=== PATIENT | female | born 1930 | race Caucasian/White ===

== ENCOUNTER 2016-02-09 12:56 | Inpatient (IN) | payer MEDICARE ==
[~2016-02-09] VITALS: Ht 167.6 cm; Wt 83.4 kg
[~2016-02-09 12:56] MED LIST: HYDR25TA4 PO; LOV40 SQ; TIOT18CA IH; tpn
[2016-02-09 13:06] VITALS: BP 144/101; PULSE 90; O2SAT 95
[2016-02-09 13:31] LABS: BASOPHILS % (AUTO) 0.4 % (0-3); EOSINOPHILS % (AUTO) 1.3 % (0-5); Mean Corpuscular Hemoglobin 25.1 pg (27.0-35.0); Mean Corpuscular Volume 81.2 fL (81-100); NEUTROPHILS % (AUTO) 79.7 % (40-74); Platelet Count 227 bil/L (150-400)
--- NOTE | 2016-02-09 13:36 | ED.REPORT ---
HPI-General Illness Date of Service Feb 09, 2016 ED Provider: Kaveh Kelley MD Patient is an 86 year old female who presents to the ED from [place] via EMS complaining of confusion (per caregiver). Associated symptoms include cough. Upon arrival she was unable to name the time of day or president. She denies ear ache, nasal congestion, sore throat, vomiting, or any other symptoms. Nursing Notes Stated Complaint: CONFUSION Chief Complaint: General Complaint Nursing Notes Reviewed: Yes Allergies: Coded Allergies: No Known Allergies (Verified , 09/01/15) Scheduled ([tpn]) DAILY Enoxaparin-Expunged Drug, Do Not Renew! (Lovenox-Expunged Drug, Do Not Renew!) 40 Mg/0.4 Ml Disp.syrin 40 MG SQ DAILY Hydrochlorothiazide-Expunged, Do Not Renew! (Hydrochlorothiazide-Expunged, Do Not Renew!) 25 Mg Tablet 25 MG PO DAILY Tiotropium Br-Expunged Drug, Do Not Renew! (Spiriva-Expunged Drug, Do Not Renew! ) 18 Mcg/Puff Pack 1 PUFF IH DAILY General Time Seen by MD: 13:35 Chief Complaint Other (Change in mental status ) Hx Obtained From: Patient Arrived By: Ambulance Sudden in Onset?: Yes Past Medical History Past Medical History 1. Significant for bowel obstruction, hospitalized here from March 28 to April 16. On March 30 she went to the operating room and had a laparotomy and an intraabdominal abscess that was drained. She also had a small bowel resection for some bowel. 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 2. Peripheral vascular disease. 3. History of intraabdominal abscesses after abdominal aortic aneurysm repair. 4. COPD. 5. Possible DVT, on Coumadin. 6. Hypertension. Reports: Diabetes mellitus Past Surgical History Status post fem/fem bypass in 1989. Abdominal aortic aneurysm repair. Intraabdominal abscess drainage in the past as well as in March. Status post appendectomy. Status post right BKA. Family History noncontributory Smoking History Former Smoker Social History Alcohol Use: Denies alcohol use Drug Use: Denies drug use Other Social History: Local resident Ambulatory Status Independent Review of Systems Full Review of Systems Ears / Nose / Throat: Denies: Earache bilateral, Nasal congestion, Sore throat Respiratory: Reports: Prod cough, clear GI: Denies: Vomiting Psychiatric: Reports: Confusion Complete sys rev & neg: except as marked. Physical Exam Vital Signs Vital Signs Date Time Temp Pulse Resp B/P Pulse Ox O2 Delivery O2 Flow Rate FiO2 02/09/16 14:11 96 157/84 98 Room Air 02/09/16 13:06 38.0 90 144/101 95 Room Air Initial VS: Reviewed General/Constitutional: Well-nourished Head / Eyes: Atraumatic, Normocephalic Neck: Full range of motion Abdomen / GI: Soft, Non-tender Skin: Warm, Dry Psychiatric: Mood/affect normal, Behavior normal Respiratory / Chest: No rales Rales / Rhonchi: Positive: Rhonchi diffuse Lower Extremity / Pelvis / MS: Pelvis stable R BKA Mental Status: Positive: Confused Interpretation & Diagnostics Lab Results Interpretation Result Diagram: 02/09/16 1318 02/09/16 1318 Test 02/09/16 13:18 02/09/16 13:34 White Blood Count 8.4th/mm3 (3.8-10.1) Red Blood Count 4.79mil/mm3 (3.90-5.20) Hemoglobin 12.0g/dL (12.0-15.6) Hematocrit 38.9% (35.0-46.0) Mean Corpuscular Volume 81.2fL (81-100) Mean Corpuscular Hemoglobin 25.1pg (27.0-35.0) Mean Corpuscular Hemoglobin Concent 30.8% (32.0-37.0) Red Cell Distribution Width 16.6% (12.3-15.4) Platelet Count 227bil/L (150-400) Neutrophils (%) (Auto) 79.7% (40-74) Lymphocytes (%) (Auto) 8.1% (14-46) Monocytes (%) (Auto) 10.0% (4-12) Eosinophils (%) (Auto) 1.3% (0-5) Basophils (%) (Auto) 0.4% (0-3) Sodium Level 137mEq/L (134-144) Potassium Level 4.4mEq/L (3.5-5.2) Chloride Level 95mEq/L (97-108) Carbon Dioxide Level 26mmol/L (18-29) Blood Urea Nitrogen 21mg/dL (8-27) Creatinine 1.62mg/dL (0.57-1.00) Estimat Glomerular Filtration Rate 43mL/min (>59) Glucose Level 201mg/dL (60-99) Lactic Acid Level 3.0mmol/L (0.4-2.0) Calcium Level 9.0mg/dL (8.5-10.1) Magnesium Level 1.9mg/dL (1.6-2.6) Total Bilirubin 0.3mg/dL (0.0-1.2) Aspartate Amino Transf (AST/SGOT) 15U/L (0-50) Alanine Aminotransferase (ALT/SGPT) 16U/L (0-32) Alkaline Phosphatase 81U/L (25-165) Troponin T < 0.010ug/L (0.0-0.011) Total Protein 7.9g/dL (6.4-8.4) Albumin 3.7g/dL (3.4-5.0) Urine Color Yellow (YELLOW) Urine Appearance Clear (CLEAR,HAZY) Urine pH 6.5 (5.0-8.0) Urine Specific Desmet 1.015 (1.003-1.035) Urine Protein Tracemg/dL (NEG,TRACE) Urine Glucose (UA) Negativemg/dL (NEGATIVE) Urine Ketones Negativemg/dL (NEGATIVE) Urine Occult Blood Trace (NEGATIVE) Urine Nitrite Negative (NEGATIVE) Urine Bilirubin Negative (NEGATIVE) Urine Urobilinogen Normalmg/dL (NORMAL) Urine Leukocyte Esterase Trace (NEGATIVE) Urine RBC 0-2/hpf (0-2) Urine WBC 0-5/hpf (0-5) Urine Epithelial Cells Occasional/hpf (NONE-MOD) Urine Crystals None seen (NONE SEEN) Urine Bacteria Few/hpf (NONE-FEW) Urine Hyaline Casts None/lpf (NONE) Urine Granular Casts None seen (NONE SEEN) Urine Waxy Casts None seen (NONE SEEN) Urine Red Blood Cell Casts None seen (NONE SEEN) Urine White Blood Cell Casts None seen (NONE SEEN) Urine Mucus None seen (None Seen) Urine Trichomonas None seen (NONE SEEN) Urine Yeast None (NONE SEEN) Urinalysis Comment None Urine Culture Reflexed Indicated ECG Interpretation ECG Interpretation: Sinus rate 90 Time: 14:00 Interpreted by: ED physician X-Ray Chest Interpretation Chest Xray Interpretation: IMPRESSION: No acute cardiopulmonary disease. Dictated by: Julio Rawls M.D. on 02/09/2016 at 14:01 Approved by: Julio Rawls M.D. on 02/09/2016 at 14:01 View: Portable, 1 view Interpretation / Wet Read by: Interpret - Radiologist Re-Eval/Medical Decision Time of Eval: 14:20 Re-Evaluation/Progress Note: Discussed desire for admission. Patient understands and agrees with plan. All questions addressed at this time. Consultation : Referral / Consult Name: Jovi Thornton MD Consulted With: Hospitalist Call Returned at: 14:46 Php Website Developer: Accepts admit Counseled Regarding: Diagnosis, Lab results, Need for admission Discharge & Departure Primary Impression: Community acquired pneumonia Disposition: ADMITTED TO HOSPITAL Referrals: Zoila Lazaro (PCP) Scribe Attestation Portions of this note were transcribed by Cassie Krueger. I, Dr. Kelley personally performed the history, physical exam and medical decision-making; I reviewed and confirmed the accuracy of the information in the transcribed note. Signed by: Cassie Krueger 02/09/2016, 1429 copies to: Zoila Lazaro Kirk H MD Feb 09, 2016 13:36 CASSIE KRUEGER Feb 09, 2016 13:45
[2016-02-09] MEDS ORDERED: 0.9% Sodium Chloride 1,000 ML IV ONE (13:41)
--- NOTE | 2016-02-09 14:02 | DRSVH ---
PROCEDURE: X-RAY CHEST ONE VIEW, PORTABLE ([id number]) INDICATIONS: 86 year-old female with shortness of breath. TECHNIQUE: One view of the chest was acquired. COMPARISON: [facility], CHEST 2VW, 09/06/2014, 17:49. [facility], CHEST 2VW, 06/23/2014, 11:24. [facility], CHEST 2VW, 07/14/2011, 12:21. FINDINGS: Surgical changes and devices: None. Lungs and pleura: No pleural effusions or pneumothorax. Lungs are clear. Mediastinum: Mediastinal contours appear normal. Heart size is normal. Bones and chest wall: No suspicious bony lesions. Overlying soft tissues appear unremarkable. IMPRESSION: No acute cardiopulmonary disease. Dictated by: Julio Rawls M.D. on 02/09/2016 at 14:01 Approved by: Julio Rawls M.D. on 02/09/2016 at 14:01
[2016-02-09 14:07] LABS: APPEARANCE,URINE CLEAR (CLEAR,HAZY); COLOR,URINE YELLOW (YELLOW); OCCULT BLOOD,URINE TRACE (NEGATIVE); PH,URINE 6.5 (5.0-8.0); UROBILINOGEN,URINE NORMAL (NORMAL)
[2016-02-09 14:07] LABS: Magnesium 1.9 mg/dL (1.6-2.6)
[2016-02-09 14:09] LABS: TROPONIN T < 0.010 ug/L (0.0-0.011)
[2016-02-09] MEDS ORDERED: levoFLOXacin Inj 750 MG in IV Premix 1 EACH IV ONE (14:10)
[2016-02-09 14:11] VITALS: BP 157/84; PULSE 96; O2SAT 98
[2016-02-09] MEDS ORDERED: Ondansetron 2 mg/mL 2 mL Inj IVPUSH PRN (14:50)
[2016-02-09] MEDS ORDERED: Alum-Mag Hydrox-Simeth 30 mL Suspension PO PRN (14:50)
[2016-02-09 15:01] VITALS: BP 153/63; PULSE 84; RESP 25; O2SAT 94
[2016-02-09] MEDS ORDERED: Polyethylene Glycol (PEG) 17 Gm Powder PO PRN (15:10)
[2016-02-09 15:43] VITALS: PULSE 88
[2016-02-09] MEDS: 0.9% Sodium Chloride 1,000 ML IV SCH (16:05)
--- NOTE | 2016-02-09 17:23 | PCM.HPMED ---
Subjective Date of Service Feb 09, 2016 Primary Provider: Admitting Physician: Jovi Thornton MD Primary Care Physician: Zoila Lazaro Attending Physician: Jovi Thornton MD Chief Complaint: Altered mental status, cough and fever/1 day History of Present Illness: 86-year-old lady with past medical history of peripheral vascular disease status post right BKA, fem/fem bypass, COPD, hypertension, history of DVT, history of bowel resection, diabetes was brought in by her caregiver due to confusion, fever and cough of one day. Her caregiver of 7 years went to see her today and found her confused. Patient was saying one of the CNAs was sleeping in her room while there was no one. Patient states she had dry cough and chest congestion which started yesterday. She also has malaise and fever. Patient has history of COPD, takes Symbicort and albuterol as needed. Patient noncompliant on her COPD inhalers as per caregiver. Denies sick contact. Denies chest pain. Denies abdominal pain. Denies nausea /vomiting. Last bowel movement 1 week ago. Denies urinary complaints In ED, febrile temp 38, BP 144/101, HR 96, saturating 95%,RR 25 WBC 8.4, neutrophils 79.7%, creatinine 1.6(at baseline) , lactic acid 3, urinalysis negative, troponin negative. Chest x-ray unremarkable. Blood culture sent IV fluids started, Levaquin 750 mg IV given. Admission requested for pneumonia. Review of Systems: Comprehensive review of systems performed, pertinent positives and negatives included in history of present illness Allergies Coded Allergies: temafloxacin (Verified Adverse Reaction, Severe, 02/09/16) Home Medications Symbicort 160/4.52 puffs twice a day Spironolactone 12.5 mg by mouth daily Warfarin 2 mg by mouth daily Furosemide 20 mg by mouth daily Fluticasone 50 MCG spray once daily nasal proair 2 puffs when necessary Aspirin 81 mg daily PMH peripheral vascular disease status post right BKA, fem/fem bypass, COPD, hypertension, history of DVT, history of bowel resection due to abdominal abscess diabetes Surgical History right BKA, 2009 fem/fem bypass 1989 Abdominal aortic aneurysm repair Laparotomy for abdominal abscess 2009 Appendectomy in high school Family History Reviewed and noncontributory. Her mom of leukemia Social History Hx Alcohol Use: No Hx Substance Use: No Hx Tobacco Use: Yes (quit last May) Smoking Status: Former Smoker Exam Vital Signs Vital Sign - Last Date Time Temp Pulse Resp B/P Pulse Ox O2 Delivery O2 Flow Rate FiO2 02/09/16 15:43 88 02/09/16 15:01 25 153/63 94 Room Air 02/09/16 13:06 38.0 Exam Gen. patient is lying comfortably in hospital bed HEENT: Head is normocephalic atraumatic, Pupils equal and reactive, extraocular movements intact, Lungs rhonchi right lung base Heart regular rate and rhythm without murmurs gallops or rubs Abdomen soft nontender without hepatosplenomegaly, multiple surgical scars Extremities R BKA , Psych alert and oriented to person place and time Neuro cranial nerves II through XII are grossly intact Lymph: There is no lymphadenopathy appreciated in the cervical supra infraclavicular regions : no pete Lab and Diagnostics Result Diagram: 02/09/16 1318 02/09/16 1318 X-Rays, CTs and MRIs PROCEDURE: X-RAY CHEST ONE VIEW, PORTABLE ([id number]) INDICATIONS: 86 year-old female with shortness of breath. TECHNIQUE: One view of the chest was acquired. COMPARISON: [facility], CHEST 2VW, 09/06/2014, 17:49. [facility], CHEST 2VW, 06/23/2014, 11:24. [facility] , CHEST 2VW, 07/14/2011, 12:21. FINDINGS: Surgical changes and devices: None. Lungs and pleura: No pleural effusions or pneumothorax. Lungs are clear. Mediastinum: Mediastinal contours appear normal. Heart size is normal. Bones and chest wall: No suspicious bony lesions. Overlying soft tissues appear unremarkable. IMPRESSION: No acute cardiopulmonary disease. Dictated by: Julio Rawls M.D. on 02/09/2016 at 14:01 Assessment & Plan 86-year-old lady with past medical history of peripheral vascular disease status post right BKA, fem/fem bypass, COPD, hypertension, history of DVT, history of bowel resection, diabetes was brought in by her caregiver due to confusion, fever and cough of one day. # sepsis due to community acquired pneumonia, POA, acute -Met sepsis criteria: Temp 38, HR 96,RR 25,LA 3,altered mental state/confusion -Influenza screen, legionella, Streptococcus urine antigen,procalcitonin requested -Blood culture pending -Levaquin 750 mg IV given in ED, we will continue with ceftriaxone and azithromycin given Minnie/CKD -dueneb ,O2 as needed -NS at 100ml,trend LA #Altered mental status due to sepsis, acute -Improved #Significant peripheral vascular disease status post right BKA, fem/fem bypass - Continue aspirin, continue warfarin - Patient stopped statin by herself # Hypertension, chronic - Hold spironolactone and Lasix given sepsis #COPD, chronic - DuoNeb #History of DVT -Continue warfarin Discussed CODE STATUS, DNR/DNI Patient admitted under inpatient status with expected length of stay > 2 midnights for severity of present symptoms, complexities of treatment plan and risk for adverse events Time spent 55 minutes copies to: Zoila Lazaro Melaku MD Feb 09, 2016 17:23
[2016-02-09] MEDS ORDERED: SPIR25TA3 PO (17:55)
[2016-02-09] MEDS ORDERED: SYMINH INHALATION (17:55)
[2016-02-09] MEDS ORDERED: WARF2TAB7 PO (17:55)
[2016-02-09] MEDS ORDERED: FUR20 PO (17:55)
[2016-02-09] MEDS: cefTRIAXone Inj 2,000 MG in IV Premix 1 EACH IV SCH (17:58)
[2016-02-09 19:02] LABS: INR 1.74 ratio
[2016-02-09 19:41] VITALS: BP 165/81; PULSE 78; RESP 18; O2SAT 96
[2016-02-09] MEDS: Albuterol-Ipratropium 3 mL Inhalation Solution NEB SCH (20:11)
[2016-02-09 20:12] VITALS: PULSE 85; RESP 18; O2SAT 95
--- NOTE | 2016-02-09 20:20 | NUR ---
behavior: pt. refusing neb tx. tried to explain to pt. with respiratory therapist about medication and its benefits, she refused.
[2016-02-10] VITALS (10 sets, daily range): BP systolic 149–176; BP diastolic 70–89; PULSE 71–90; RESP 16–20; O2SAT 92–96
[2016-02-10] MEDS: Albuterol-Ipratropium 3 mL Inhalation Solution NEB SCH ×4 (02:28→19:53)
[2016-02-10 03:39] LABS: BASOPHILS % (AUTO) 0.5 % (0-3); EOSINOPHILS % (AUTO) 0.5 % (0-5); MONOCYTES % (AUTO) 9.3 % (4-12); Mean Corpuscular Hemoglobin 25.2 pg (27.0-35.0); Mean Corpuscular Volume 81.2 fL (81-100); NEUTROPHILS % (AUTO) 81.1 % (40-74); Platelet Count 205 bil/L (150-400)
--- NOTE | 2016-02-10 03:52 | NUR ---
htn: pt's bp 176/81, pt. usually on hydrochlorathiazide and lasix at home per med rec, pt. cont. to refuse neb tx.
[2016-02-10 03:58] LABS: INR 1.75 ratio
[2016-02-10 04:04] LABS: Magnesium 1.8 mg/dL (1.6-2.6)
[2016-02-10] MEDS: 0.9% Sodium Chloride 1,000 ML IV SCH ×3 (04:50→21:10)
[2016-02-10] MEDS: cefTRIAXone Inj 2,000 MG in IV Premix 1 EACH IV SCH (08:43)
[2016-02-10] MEDS: Vancomycin Dose per Pharmacist XX SCH (09:10)
[2016-02-10] MEDS ORDERED: Vancomycin Serum Trough XX ONE (09:25)
--- NOTE | 2016-02-10 09:29 | PCM.PHAPRO ---
Progress Altered mental status, cough and fever/1 day Patient is an 86 y.o.fe male receiving vancomycin for cap. Concurrent abx include: ceftriaxone. WBC count is 8.6 and the patient is afebrile. Patient is 88 kg, 66inches tall with a SCr of 1.58 mg/dL-- estimated CrCl of 32mL/min. Based on patient parameters vancomycin will be dosed at 1000mg q24h with a target trough of 15-20 /mL. Trough will be drawn prior to the 3rd dose on 02/11 @ 0700. Pharmacy will follow daily and adjust as appropriate. Thank you for the consult in the care of this patient. RTM PharmD Benjamin Shah Feb 10, 2016 09:29
--- NOTE | 2016-02-10 14:31 | PCM.PNMED ---
Subjective Date of Service Feb 10, 2016 Subjective Afebrile, feeling better overall, blood culture growing gram-positive cocci 2. Had urinary retention overnight and in and out catheter used Exam Vital Signs Vital Sign - Last Date Time Temp Pulse Resp B/P Pulse Ox O2 Delivery O2 Flow Rate FiO2 02/10/16 13:28 36.7 82 18 149/71 92 Room Air Intake and Output 02/09/16 02/09/16 02/10/16 Cumulative From/Thru 15:00 23:00 07:00 02/09/16 14:38 - 02/10/16 06:52 Intake Total 1000 ml 1994 ml 2994 ml Output Total 800 ml 2420 ml 3220 ml Balance 1000 ml -800 ml -426 ml -226 ml Intake Oral 850 ml 850 ml IV Total 1000 ml 1144 ml 2144 ml Output Urine Total 800 ml 2420 ml 3220 ml # Voids 6 6 # Bowel Movements 0 0 Exam Gen. patient is lying comfortably in hospital bed HEENT: Head is normocephalic atraumatic, Pupils equal and reactive, extraocular movements intact, Lungs rhonchi right lung base Heart regular rate and rhythm without murmurs gallops or rubs Abdomen soft nontender without hepatosplenomegaly, multiple surgical scars Extremities R BKA , Psych alert and oriented to person place and time Neuro cranial nerves II through XII are grossly intact Lymph: There is no lymphadenopathy appreciated in the cervical supra infraclavicular regions : no pete IVs and Medications Medications Reviewed: Medications were reviewed in detail Lab and Diagnostics Result Diagram: 02/10/16 0325 02/10/16 0325 Microbiology Microbiology WILLIAM CULTURE BLOOD Preliminary 02/10/16-918 Organism 1 POSITIVE BLOOD CULTURE GRAM STAIN RESULT GRAM POSITIVE COCCI ?STAPH BC BOTTLE Isolated from Aerobic Bottle of Set Drawn DATE CALLED: 02/10/16 TIME CALLED: 0847 CALLED BY: VANCE FLOOR/DOCTOR: ZELALEM/THAO AFRFAN READ BACK YES TYPE OF DRAW NURSE COLLLECT TYPE NOT SPECIFIED TIME OF POSITIVITY 0827 GRAM STAIN RESULT GRAM POSITIVE COCCI ?STAPH BC BOTTLE2 Isolated from Anaerobic Bottle of Set Drawn DATE CALLED: 02/10/16 TIME CALLED: 0918 CALLED BY: VANCE FLOOR/DOCTOR: ZELALEM/THAO FARFAN READ BACK YES TYPE OF DRAW NURSE COLLECT TYPE NOT INDICATED TIME OF POSITIVITY 0900 X-Rays, CTs and MRIs PROCEDURE: X-RAY CHEST ONE VIEW, PORTABLE ([id number]) INDICATIONS: 86 year-old female with shortness of breath. TECHNIQUE: One view of the chest was acquired. COMPARISON: [facility], CR, CHEST 2VW, 09/06/2014, 17:49. [facility], CR, CHEST 2VW, 06/23/2014, 11:24. [facility], CR , CHEST 2VW, 07/14/2011, 12:21. FINDINGS: Surgical changes and devices: None. Lungs and pleura: No pleural effusions or pneumothorax. Lungs are clear. Mediastinum: Mediastinal contours appear normal. Heart size is normal. Bones and chest wall: No suspicious bony lesions. Overlying soft tissues appear unremarkable. IMPRESSION: No acute cardiopulmonary disease. Dictated by: Julio Rawls M.D. on 02/09/2016 at 14:01 Assessment & Plan 86-year-old lady with past medical history of peripheral vascular disease status post right BKA, fem/fem bypass, COPD, hypertension, history of DVT, history of bowel resection, diabetes was brought in by her caregiver due to confusion, fever and cough of one day. # sepsis /bacteremia due to community acquired pneumonia, POA, acute -Met sepsis criteria: Initial Temp 38, HR 96,RR 25,LA 3,altered mental state/ confusion -Influenza screen negative, legionella, Streptococcus urine antigen negative, procalcitonin 0.12 -Blood culture growing gram-positive cocci -Levaquin 750 mg IV given in ED, we will continue with ceftriaxone and azithromycin given Minnie/CKD. will add vancomycin awaiting speciation of blood culture -dueneb ,O2 as needed -Treated with NS at 100ml,trended down LA . will Consider stopping IV fluids and resuming Lasix tomorrow -will order echocardiogram to rule out IE given bacteremia and patient on double diuretics( Lasix and Aldactone) , no echo in chart #Altered mental status due to sepsis, acute -Improved #Significant peripheral vascular disease status post right BKA, fem/fem bypass - Continue aspirin, continue warfarin - Patient stopped statin by herself # Hypertension, chronic - Hold spironolactone and Lasix given sepsis #COPD, chronic - DuoNeb #History of DVT -Continue warfarin # Suspected systolic chronic CHF - patient on double diuretics( Lasix and Aldactone) , no echo in chart . will obtain echo #CKD -Baseline creatinine 1.7, creatinine at 1.5 now #Prophylaxis -Warfarin Discussed CODE STATUS, DNR/DNI Disposition: Pending hospital course, back to [place] eventually Resuscitation Status: DNR/DNI:Do Not Resuscitate/Intubate Jovi Thornton MD Feb 10, 2016 14:31
--- NOTE | 2016-02-10 15:58 | NUR ---
Social Work Note: Initial Assessment Data& Assessment:SW met with pt and pt daughter Tari ([phone]) at bedside to discuss discharge planning, SW role explained. Tiana Kinney is a 86 year old female admitted on 02/09/2016 for sepsis and CAP. Pt has Medicare and [employer] supplement insurance coverage. Pt sees SOFY Orozco for primary care. Pt lives at [facility] on the independent side. Pt is wheelchair bound but is able to transfer independently at baseline. Pt had [facility] and has been to [facility] around 7 years ago after a surgery. Pt has a living will completed, daughter will try to bring in a copy of the advanced directive/DPOA sections of the will as soon as possible. Pt denies [facility] insurance or VA benefits. Pt as a private caregiver that comes in twice a week to help shower and also transport pt to any appointments. Pt daughter has concerns about pt returning to the independent side of the facility. Pt and pt daughter discussing whether they would like [facility] to assess her for the assisted side of the facility in order to have medication management and reminders. Per pt daughter, pt sometimes to forget to take her medications. SW also discussed HH RN as a temporary transitionary service or [facility] medication dispensers if it takes time for pt to be switched to the assisted living side of the facility if that is what the pt decides. SW to follow up with pt and pt daughter regarding discharge planning and connect with [facility] RN regarding possible transition to assisted side of the facility if appropriate. Pt and pt daughter deny any other needs at this time. SW to continue to follow. Plan: Anticipated discharge back to [facility] with HH vs. transition to assisted side. SW to follow up with pt and pt daughter regarding discharge planning and connect with [facility] RN regarding possible transition to assisted side of the facility if appropriate. Pt and pt daughter deny any other needs at this time. SW to continue to follow. JOHN Jha Addendum: 02/10/16 at 1606 by CAROLINA BOLDEN SS Amended: Links added.
[2016-02-10] MEDS: Tiotropium 18mcg/Cap 5 Capsule Inhaler Kit INHALATION SCH (16:25)
[2016-02-10] MEDS: Fluticasone-Salmererol 250-50 Inhaler INHALATION SCH ×2 (16:26→21:52)
--- NOTE | 2016-02-10 18:35 | NUR ---
Urinary Retention Pt was asking to use the bed felder frequently and not having good output. Placed pt on bed felder and she was able to urinate 250. Bladder scanned her afterwards and she had 365 mL remaining. Per MD order Moya catheter was placed. Moya patent and draining to gravity.
[2016-02-11] VITALS (12 sets, daily range): BP systolic 132–167; BP diastolic 67–90; PULSE 68–101; RESP 16–22; O2SAT 92–98
--- NOTE | 2016-02-11 03:08 | NUR ---
Activity Patient in bed all of shift thus far. No c/o pain or discomfort, FELDT score= 0. Resting with eyes closed most of shift. Curry alarm in place for safety. Will continue Q1hour rounding.
[2016-02-11] MEDS: Albuterol-Ipratropium 3 mL Inhalation Solution NEB SCH ×4 (04:12→20:28)
[2016-02-11 07:28] LABS: BASOPHILS % (AUTO) 0.8 % (0-3); EOSINOPHILS % (AUTO) 2.7 % (0-5); MONOCYTES % (AUTO) 21.2 % (4-12); Mean Corpuscular Hemoglobin 25.5 pg (27.0-35.0); Mean Corpuscular Volume 81.7 fL (81-100); NEUTROPHILS % (AUTO) 58.3 % (40-74); Platelet Count 183 bil/L (150-400)
[2016-02-11 07:37] LABS: INR 1.53 ratio
[2016-02-11 07:50] LABS: Phosphorus 3.2 mg/dL (2.5-4.9)
[2016-02-11] MEDS: Vancomycin Dose per Pharmacist XX SCH (08:30)
--- NOTE | 2016-02-11 08:33 | DRSVH ---
PROCEDURE: X-RAY CHEST ONE VIEW, PORTABLE ([id number]) INDICATIONS: 86 year-old female with pneumonia. TECHNIQUE: One view of the chest was acquired. COMPARISON: [facility], CR, XR CHEST 1VW (PORTABLE), 02/09/2016, 13:27. [facility], CR, CHEST 2VW, 09/06/2014, 17:49. [facility], CR, CHEST 2VW, 06/23/2014, 11:24. FINDINGS: Surgical changes and devices: None. Lungs and pleura: There is new blunting of the right costophrenic angle. Lungs are clear. No pneumot horax. Mediastinum: Mediastinal contours appear normal. Heart size is normal. There is aortic atheroscler osis. Bones and chest wall: No suspicious bony lesions. There is T12 inferior endplate compression fractu re. Overlying soft tissues appear unremarkable. IMPRESSION: 1. New trace right subpulmonic pleural effusion is of uncertain etiology. 2. Age-indeterminate T12 vertebral body compression fracture. Dictated by: Julio Rawls M.D. on 02/11/2016 at 8:31 Approved by: Julio Rawls M.D. on 02/11/2016 at 8:31
[2016-02-11] MEDS: Tiotropium 18mcg/Cap 5 Capsule Inhaler Kit INHALATION SCH (09:08)
[2016-02-11] MEDS: cefTRIAXone Inj 2,000 MG in IV Premix 1 EACH IV SCH (09:08)
[2016-02-11] MEDS: Fluticasone-Salmererol 250-50 Inhaler INHALATION SCH ×2 (09:08→21:25)
[2016-02-11] MEDS: Vancomycin Inj 1,000 MG in IV Premix 1 EACH IV SCH (10:10)
--- NOTE | 2016-02-11 10:28 | PCM.PHAPRO ---
Progress Altered mental status, cough and fever/1 day WARFARIN DOSING PER PHARMACY Indication: Hx of DVT CHADsVASc = 6 Home dose: Warfarin 2 mg daily INR Goal: 2-3 Antiplatelet tx: ASA 81 mg daily DI: Azithromycin Lab Date Result Dose INR 02/09/16 1.74 home INR 02/09/15 1.75 2 mg INR 02/10/15 1.53 P: - Pt is currently subtherapeutic. Home dose was started yesterday - Will give one dose of warfarin 3 mg PO tonight - Pharmacy will continue to monitor INR/CBC/signs and symptoms of bleeding Jen Hough PharmD Feb 11, 2016 10:28
--- NOTE | 2016-02-11 14:46 | PCM.PNMED ---
Subjective Date of Service Feb 11, 2016 Subjective Continues to have cough and dyspnea but improving. Afebrile. Had urinary retention yesterday and pete inserted Exam Vital Signs Vital Sign - Last Date Time Temp Pulse Resp B/P Pulse Ox O2 Delivery O2 Flow Rate FiO2 02/11/16 14:01 76 22 94 Room Air 02/11/16 11:15 36.6 148/80 Intake and Output 02/10/16 02/10/16 02/11/16 Cumulative From/Thru 15:00 23:00 07:00 02/09/16 14:38 - 02/11/16 05:46 Intake Total 1116 ml 632 ml 4742 ml Output Total 1000 ml 4220 ml Balance 116 ml 632 ml 522 ml Intake Oral 600 ml 1450 ml IV Total 516 ml 632 ml 3292 ml Output Urine Total 1000 ml 4220 ml # Voids 1 7 # Bowel Movements 0 0 Exam Gen. patient is lying comfortably in hospital bed HEENT: Head is normocephalic atraumatic, Pupils equal and reactive, extraocular movements intact, Lungs rhonchi right lung base Heart regular rate and rhythm without murmurs gallops or rubs Abdomen soft nontender without hepatosplenomegaly, multiple surgical scars Extremities R BKA , Psych alert and oriented to person place and time Neuro cranial nerves II through XII are grossly intact Lymph: There is no lymphadenopathy appreciated in the cervical supra infraclavicular regions : no pete IVs and Medications Medications Reviewed: Medications were reviewed in detail Lab and Diagnostics Result Diagram: 02/11/16 0710 02/11/16 0710 Microbiology Microbiology WILLIAM CULTURE BLOOD Preliminary 02/10/16-918 Organism 1 POSITIVE BLOOD CULTURE GRAM STAIN RESULT GRAM POSITIVE COCCI ?STAPH BC BOTTLE Isolated from Aerobic Bottle of Set Drawn DATE CALLED: 02/10/16 TIME CALLED: 0847 CALLED BY: VANCE FLOOR/DOCTOR: ZELALEM/THAO FARFAN READ BACK YES TYPE OF DRAW NURSE COLLLECT TYPE NOT SPECIFIED TIME OF POSITIVITY 0827 GRAM STAIN RESULT GRAM POSITIVE COCCI ?STAPH BC BOTTLE2 Isolated from Anaerobic Bottle of Set Drawn DATE CALLED: 02/10/16 TIME CALLED: 0918 CALLED BY: VANCE FLOOR/DOCTOR: ZELALEM/THAO FARFAN READ BACK YES TYPE OF DRAW NURSE COLLECT TYPE NOT INDICATED TIME OF POSITIVITY 0900 X-Rays, CTs and MRIs PROCEDURE: X-RAY CHEST ONE VIEW, PORTABLE ([id number]) INDICATIONS: 86 year-old female with shortness of breath. TECHNIQUE: One view of the chest was acquired. COMPARISON: [facility], CR, CHEST 2VW, 09/06/2014, 17:49. [facility], CR, CHEST 2VW, 06/23/2014, 11:24. [facility], CR , CHEST 2VW, 07/14/2011, 12:21. FINDINGS: Surgical changes and devices: None. Lungs and pleura: No pleural effusions or pneumothorax. Lungs are clear. Mediastinum: Mediastinal contours appear normal. Heart size is normal. Bones and chest wall: No suspicious bony lesions. Overlying soft tissues appear unremarkable. IMPRESSION: No acute cardiopulmonary disease. Dictated by: Julio Rawls M.D. on 02/09/2016 at 14:01 Assessment & Plan 86-year-old lady with past medical history of peripheral vascular disease status post right BKA, fem/fem bypass, COPD, hypertension, history of DVT, history of bowel resection, diabetes was brought in by her caregiver due to confusion, fever and cough of one day. # sepsis /bacteremia due to community acquired pneumonia, POA, acute -Met sepsis criteria: Initial Temp 38, HR 96,RR 25,LA 3,altered mental state/ confusion -Influenza screen negative, legionella, Streptococcus urine antigen negative, procalcitonin 0.12 -Blood culture growing gram-positive cocci , repeat blood culture sent -Levaquin 750 mg IV given in ED, we will continue with ceftriaxone and azithromycin and vancomycin awaiting speciation of blood culture -dueneb ,O2 as needed -Treated with NS at 100ml,trended down LA . will stop IV fluids and resume home Lasix and Aldactone given sepsis resolved -will ordered echocardiogram to rule out IE given bacteremia and patient on double diuretics( Lasix and Aldactone) , no echo in chart #Altered mental status due to sepsis, acute -Improved #Significant peripheral vascular disease status post right BKA, fem/fem bypass - Continue aspirin, continue warfarin - Patient stopped statin by herself # Hypertension, chronic - resume spironolactone and Lasix given sepsis #COPD, chronic - DuoNeb #History of DVT -Continue warfarin # Suspected systolic chronic CHF - patient on double diuretics( Lasix and Aldactone) , no echo in chart . will obtain echo #CKD -Baseline creatinine 1.7, creatinine at 1.5 now # urinary retention -pete inserted,will do voiding trial tomorrow #Prophylaxis -Warfarin Discussed CODE STATUS, DNR/DNI Disposition: Pending hospital course, back to [place] eventually VTE Mechanical Devices: Intermittant Pneumatic CD Resuscitation Status: DNR/DNI:Do Not Resuscitate/Intubate Jovi Thornton MD Feb 11, 2016 14:46
[2016-02-11] MEDS: Azithromycin Inj 500 MG in Dextrose 5% w/Vial Mate 250 ML IV SCH (16:15)
--- NOTE | 2016-02-11 16:34 | NUR ---
Took over care at 3:30 pm Addendum: 02/11/16 at 1635 by USMAN DICK CNA Amended: Links added.
--- NOTE | 2016-02-11 22:44 | CONS ---
[address] [address] CONSULTATION REPORT PATIENT: GLENN SIGALA : 1930 MR#: [id number] ADMIT: 02/09/2016 JOB ID: [id number] INFECTIOUS DISEASES CONSULTATION: DATE OF SERVICE: 02/11/[address] Thornton for this timely consult. REASON FOR CONSULTATION: Bacteremia with possible underlying pulmonary or soft tissue infection in an elderly female. HISTORY OF PRESENT ILLNESS: Patient is an 86-year-old woman who lives in the local area. She was admitted to this facility on February 08 after she was found to have a change in mental status and low-grade fever. This was associated with a cough which the patient now tells us has been quite severe for the past 2-3 weeks. Recall that the patient has underlying history of COPD as well as vascular disease and diabetes mellitus. Apparently, since admission, the patient's mental status has improved somewhat. This afternoon, she is able to tell us where she is currently, but is not aware even of where she lives within the local area, having told people she lives both in [place] and [place], but actually appears to live in [place]. She tells us that she has not had fevers or chills lately, but does relate this history of increasing cough over about three weeks. She denies significant abdominal complaint, and states that she has chronic pain in her remaining full left lower extremity. She describes this pain as pain to the touch with even light touch below the knee. She states this is a chronic problem and not acutely different. She also tells us she is able to get around by wheelchair, but at one point she implied that she could walk which seems highly unlikely. PAST MEDICAL HISTORY: 1. Severe peripheral vascular disease. a. 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 b. Status post fem-fem bypass. c. History of abdominal aortic aneurysm repair with postop infection. 2. COPD. 3. Hypertension. 4. DVT. 5. History of bowel resection with enterocutaneous abscess. 6. Diabetes mellitus. SOCIAL HISTORY: The patient tells us that she quit smoking in 2008 after her right BKA. She does not drink alcohol, and lives apparently in [place], but until recently, she said she lived on the [place] farm in [place]. FAMILY HISTORY: Positive for mother with tuberculosis. The patient herself has no history of TB, but it is not clear if she has been checked for latent TB. REVIEW OF SYSTEMS: The patient is alert and talkative this afternoon. As noted, she is not completely oriented, so it is hard to know what to make of her history, but she states she has no headache, acute visual change, or productive cough. She notes a mild sore throat as well as a continual hacking nonproductive cough. She denies being short of breath. No nausea, vomiting, or diarrhea. No abdominal pain. No dysuria. She states she has chronic pain in the left lower extremity below the knee, especially when someone touches it. She states she is able to get around well in a wheelchair. PHYSICAL EXAMINATION: GENERAL: Reveals a chronically ill-appearing, elderly woman who looks about 86. VITAL SIGNS: She is afebrile and has been since when she first arrived in the ER on the early afternoon of February 08, two days ago. At that time, she had a 38 low-grade temperature and has been absolutely afebrile the past 48 hours. Pulse currently in the 90s, respiratory rate 15-20, blood pressure 151/67. She is saturating well on room air and appears calm and in no acute distress. HEAD: Examination of the head reveals no trauma. EYES: Without conjunctivitis or scleral icterus. ORAL CAVITY: Without thrush or pharyngitis. NECK: Reasonably supple without adenopathy. LUNGS: Coarse breath sounds and wheezing bilaterally. HEART: Cardiac tones are hard to hear over all the lung sounds, but regular rate and rhythm without notable murmur. ABDOMEN: Relatively soft and nontender. It is a bit obese and her BMI is 30.6. : Moya catheter is present. No suprapubic fullness or tenderness. EXTREMITIES: The patient's right lower extremity has a BK amputation and a well-healed stump. The left lower extremity is notable for a faint erythroderma which extends in a circumferential way around the mid calf. There is no obvious warmth, but the whole area is tender to palpation. She tells us it has been tender to palpation for years, however, and there is no bullae, slough, or blister present. The left foot is completely white and appears to be ischemic though it is not tender as opposed to the mid thigh area that is tender. The foot has no erythema, so one cannot test capillary refill. There is no evidence for infection on the left lower extremity. LABORATORIES: Include a white count of 4800. Note that her admission white count was 8400 without significant shift. Creatinine 1.52. LFTs completely normal. Albumin 3.5. Pro calcitonin is negative on two measurements. Urinalysis without white cells. Urine Legionella and pneumococcal antigens are negative. Initial blood cultures two of four bottles, both from one set, have grown a Staph species to be identified tomorrow. Follow up blood cultures are negative. Influenza screen was negative. Two chest x-rays show basically no infiltrate. Trace right subpulmonic effusion was noticed on the second of the two consecutive chest x-rays. IMPRESSION: I see little evidence for pneumonia in this patient. She has a chronic nonproductive cough which sounds like it is worse in the last 2-3 weeks and I wonder if what we are dealing with here is more of a chronic obstructive pulmonary disease exacerbation, perhaps caused by some virus, rather than a true pulmonary infection such as pneumonia or empyema. I am also not sure what to make of the two positive blood cultures. These occurred from the same set, so if they returned case inspector to be coagulase negative Staph, I think we could write them off as contaminants. If, on the other hand, they are Staphylococcus aureus, a major workup is indicated including serial blood cultures, echocardiography, and perhaps additional studies beyond that. I suspect these will returned case inspector to be coag-negative staph and they will be contaminants. The last item here of concern is her left lower extremity which appears to be ischemic below the knee. It sounds as if this is chronic and it would make sense in a patient with such advanced peripheral vascular disease to have ischemia in her remaining leg. At this point, the left leg does not look infected. The final item of concern is the history of tuberculosis in her mother. It is certainly possible the patient may have latent tuberculosis over the decades and it is worth checking a QuantiFERON Gold. RECOMMENDATIONS: 1. I would stop the ceftriaxone at this point. 2. Will continue the vancomycin overnight until we know more about the Staph in her blood. 3. Will continue the Zithromax overnight until we have a better handle on any possible pulmonary process. 4. A QuantiFERON Gold be checked. 5. Respiratory viral PCR will be checked. 6. I suspect the patient will returned case inspector to have a respiratory viral infection which is exacerbating her chronic underlying lung disease and will find nothing else, which would be the best solution for the patient, but will await tomorrow and the additional studies.
[2016-02-12] VITALS (10 sets, daily range): BP systolic 122–158; BP diastolic 73–81; PULSE 68–100; RESP 18–20; O2SAT 93–98
--- NOTE | 2016-02-12 00:04 | NUR ---
respiratory home connect lpn cough, enc po fluids. rr 18, ra sat 92%
[2016-02-12] MEDS: Albuterol-Ipratropium 3 mL Inhalation Solution NEB SCH ×4 (00:07→20:12)
[2016-02-12] MEDS ORDERED: Vancomycin Serum Trough XX ONE (07:00)
[2016-02-12 07:21] LABS: INR 1.53 ratio
[2016-02-12] MEDS: Vancomycin Inj 1,000 MG in IV Premix 1 EACH IV SCH (08:06)
[2016-02-12] MEDS: Fluticasone-Salmererol 250-50 Inhaler INHALATION SCH ×2 (10:06→21:45)
[2016-02-12] MEDS: Tiotropium 18mcg/Cap 5 Capsule Inhaler Kit INHALATION SCH (10:06)
[2016-02-12] MEDS: Vancomycin Dose per Pharmacist XX SCH (10:07)
[2016-02-12] MEDS: Azithromycin Inj 500 MG in Dextrose 5% w/Vial Mate 250 ML IV SCH (10:22)
--- NOTE | 2016-02-12 12:35 | PCM.PHAPRO ---
Progress Altered mental status, cough and fever/1 day WARFARIN DOSING PER PHARMACY Indication: Hx of DVT CHADsVASc = 6 Home dose: Warfarin 2 mg daily INR Goal: 2-3 Antiplatelet tx: ASA 81 mg daily DI: Azithromycin Lab Date Result Dose INR 02/09/16 1.74 home INR 02/09/15 1.75 2 mg INR 02/10/15 1.53 3 MG INR 02/11/15 1.53 P: - Pt is currently subtherapeutic. Home dose was started yesterday - Will give one dose of warfarin 3 mg PO tonight - Pharmacy will continue to monitor INR/CBC/signs and symptoms of bleeding Jen Hough PharmD Feb 12, 2016 12:35
--- NOTE | 2016-02-12 13:10 | PROG NOTE ---
[address] [address] PROGRESS NOTE PATIENT: GLENN SIGALA : 1930 MR#: [id number] ADMIT: 02/09/2016 JOB ID: [id number] DATE: 02/12/2016 INFECTIOUS DISEASE FOLLOW UP NOTE: REASON FOR FOLLOW UP: Respiratory tract infection, likely viral. INTERVAL HISTORY: Overnight, the patient reports her chronic barking nonproductive cough has lessened somewhat. She is no longer as short of breath as she was and she denies any fevers, chills or sweats. No significant GI symptoms. The patient remains afebrile. Temperature 36.9, pulse 78, respiratory rate 20, blood pressure 150/73. She is saturating well on room air. The patient is quite comfortable and is having lunch. Oral cavity negative. Lungs: Crackles at the bases, perhaps left more than right. Abdomen: Nontender. No skin rash. LABORATORIES: Include white count 4800, platelet count 183, creatinine 1.52. Urinalysis without pyuria. Micro studies include negative blood cultures, negative streptococcal and Legionella urine antigens. Note that the initial set of blood cultures was actually positive in 2/4 bottles but this was for two different coag-negative Staph species and all follow up blood cultures were negative. I would conclude the original positives were a contaminant. The most recent chest x-ray on February 10 showed a small trace right effusion. IMPRESSION: I see little evidence for ongoing bacterial infection in this patient. She has a chronic nonproductive cough which is actually starting to get better which is on top of her chronic COPD. I suspect this is viral, though for some reason, the viral respiratory panel that was ordered yesterday was never done and I reminded the nurses to be sure and get that done today. If the coagulase-negative Staph and the blood cultures are a contaminant, I see no reason for an echo. RECOMMENDATIONS: 1. I would discontinue the vancomycin. 2. We can continue with the azithromycin; however, for a short course for her COPD exacerbation, but I do not see any bacterial infection going on. 3. We await the respiratory viral PCR.
--- NOTE | 2016-02-12 16:58 | NUR ---
Influenza precautions + Flu A. Droplet and contact precautions. Educated family and patient.
--- NOTE | 2016-02-12 17:56 | PCM.PNMED ---
Subjective Date of Service Feb 12, 2016 Subjective Continues to have dyspnea and cough. Afebrile. Ceftriaxone and vancomycin stopped by ID, continued on azithromycin for COPD exacerbation. Influenza positive today. Pete discontinued Exam Vital Signs Vital Sign - Last Date Time Temp Pulse Resp B/P Pulse Ox O2 Delivery O2 Flow Rate FiO2 02/12/16 15:02 74 20 93 Room Air 02/12/16 14:52 36.3 158/79 Intake and Output 02/11/16 02/11/16 02/12/16 Cumulative From/Thru 14:59 22:59 06:59 02/09/16 14:38 - 02/12/16 06:04 Intake Total 400 ml 1622 ml 432 ml 7196 ml Output Total 800 ml 1600 ml 550 ml 7170 ml Balance -400 ml 22 ml -118 ml 26 ml Intake Oral 400 ml 1000 ml 350 ml 3200 ml IV Total 622 ml 82 ml 3996 ml Output Urine Total 800 ml 1600 ml 550 ml 7170 ml # Voids 7 # Bowel Movements 0 0 0 Exam Gen. patient is lying comfortably in hospital bed HEENT: Head is normocephalic atraumatic, Pupils equal and reactive, extraocular movements intact, Lungs rhonchi right lung base Heart regular rate and rhythm without murmurs gallops or rubs Abdomen soft nontender without hepatosplenomegaly, multiple surgical scars Extremities R BKA , very sensitive left leg. Complaints of pain even to light touch. No sign of infection. Psych alert and oriented to person place and time Neuro cranial nerves II through XII are grossly intact Lymph: There is no lymphadenopathy appreciated in the cervical supra infraclavicular regions : no pete IVs and Medications Medications Reviewed: Medications were reviewed in detail Lab and Diagnostics Result Diagram: 02/11/16 0710 02/11/16 0710 Microbiology Microbiology WILLIAM CULTURE BLOOD Preliminary 02/10/16-918 Organism 1 POSITIVE BLOOD CULTURE GRAM STAIN RESULT GRAM POSITIVE COCCI ?STAPH BC BOTTLE Isolated from Aerobic Bottle of Set Drawn DATE CALLED: 02/10/16 TIME CALLED: 0847 CALLED BY: VANCE FLOOR/DOCTOR: ZELALEM/THAO FARFAN READ BACK YES TYPE OF DRAW NURSE COLLLECT TYPE NOT SPECIFIED TIME OF POSITIVITY 0827 GRAM STAIN RESULT GRAM POSITIVE COCCI ?STAPH BC BOTTLE2 Isolated from Anaerobic Bottle of Set Drawn DATE CALLED: 02/10/16 TIME CALLED: 0918 CALLED BY: VANCE FLOOR/DOCTOR: OSC/THAO Simpson READ BACK YES TYPE OF DRAW NURSE COLLECT TYPE NOT INDICATED TIME OF POSITIVITY 0900 X-Rays, CTs and MRIs PROCEDURE: X-RAY CHEST ONE VIEW, PORTABLE ([id number]) INDICATIONS: 86 year-old female with shortness of breath. TECHNIQUE: One view of the chest was acquired. COMPARISON: [facility], CR, CHEST 2VW, 09/06/2014, 17:49. [facility], CR, CHEST 2VW, 06/23/2014, 11:24. [facility], CR , CHEST 2VW, 07/14/2011, 12:21. FINDINGS: Surgical changes and devices: None. Lungs and pleura: No pleural effusions or pneumothorax. Lungs are clear. Mediastinum: Mediastinal contours appear normal. Heart size is normal. Bones and chest wall: No suspicious bony lesions. Overlying soft tissues appear unremarkable. IMPRESSION: No acute cardiopulmonary disease. Dictated by: Julio Rawls M.D. on 02/09/2016 at 14:01 Assessment & Plan 86-year-old lady with past medical history of peripheral vascular disease status post right BKA, fem/fem bypass, COPD, hypertension, history of DVT, history of bowel resection, diabetes was brought in by her caregiver due to confusion, fever and cough of one day. # Initially suspected sepsis /bacteremia due to community acquired pneumonia, POA, acute -Met sepsis criteria: Initial Temp 38, HR 96,RR 25,LA 3,altered mental state/ confusion -Influenza positive today 02/11, initially negative. Started on Tamiflu, legionella, Streptococcus urine antigen negative,procalcitonin low 0.12 -Blood culture growing gram-positive cocci , repeat blood culture sent -Levaquin 750 mg IV given in ED, switched to ceftriaxone , azithromycin and vancomycin. Ceftriaxone and vancomycin stopped by ID. Continue azithromycin for COPD exacerbation. Patient reportedly noncompliant with her COPD inhalers as per caregiver -dueneb ,O2 as needed -Treated with NS at 100ml,trended down LA . will stop IV fluids and resume home Lasix and Aldactone given sepsis resolved - echocardiogram pending to rule out IE given bacteremia and patient on double diuretics( Lasix and Aldactone) , no echo in chart #Altered mental status due to sepsis, acute -Improved #Significant peripheral vascular disease status post right BKA, fem/fem bypass - Continue aspirin, continue warfarin - Patient stopped statin by herself -Patient is very sensitive left leg. Peripheral neuropathy versus chronic ischemia # Hypertension, chronic - resume spironolactone and Lasix given sepsis #COPD, chronic - DuoNeb #History of DVT -Continue warfarin # Suspected systolic chronic CHF - patient on double diuretics( Lasix and Aldactone) , no echo in chart . will obtain echo #CKD -Baseline creatinine 1.7, creatinine at 1.5 now # urinary retention -pete inserted,will do voiding trial tomorrow #Prophylaxis -Warfarin Discussed CODE STATUS, DNR/DNI Disposition: Pending hospital course, back to [place] eventually VTE Mechanical Devices: Intermittant Pneumatic CD Resuscitation Status: DNR/DNI:Do Not Resuscitate/Intubate Jovi Thornton MD Feb 12, 2016 17:56
--- NOTE | 2016-02-12 18:08 | DRSVH ---
[facility] [address] [place] [address] Echocardiogram Report Name: GLENN SIGALA Date: 02/12/2016 Height: 66 in Hospital Exam Location: [facility] Weight: 190 lb Gender: Female BSA: 2.0 m2 : 1930 Age: 86 yrs BP: 150/73 mm Hg Reason For Study: BACTEREMIA Ordering Physician: [facility] Performed By: Anitha Roberson Referring Physician: Dr. Zoila Lazaro Interpretation Summary The left ventricle is normal in size. Left ventricular systolic function is normal without focal wall motion abnormalities. The ejection fraction is estimated to be 65-70%. The E/A ratio is reversed with an elevated E/E', suggesting impaired early relaxation of the left ventricle with possible increased filling pressures. The right ventricle grossly appears normal in size with probable normal systolic function. Right ventricular systolic pressure is estimated to be 29 mmHg plus the clinically estimated CVP which cannot be estimated on this exam. The left atrium grossly appears normal in size. The right atrium grossly appears normal in size. There is mild to moderate mitral annular calcification. A vegetation on the mitral valve cannot be excluded, however there is no significant MR. Consider KAILYN if clinically suspicious for endocarditis. There is moderate aortic stenosis. The calculated aortic valve area is 1.0 cm2. The peak aortic velocity is 281 cm/sec. There is no other significant valvular heart disease. The aortic root is not well visualized but is probably normal size. Procedure: A two-dimensional transthoracic echocardiogram with color flow and Doppler was performed. The study quality was technically difficult. Comparison is made with the echocardiogram of 06/05/2008. A contrast injection of Definity was performed to improve assessment of LV function. The patient was in normal sinus rhythm during the exam. Left Ventricle: The left ventricle is normal in size. Left ventricular wall thickness is normal. The LVOT diameter is 1.7 cm. The LVOT velocity is 128.0 cm/sec. Left ventricular systolic function is normal without focal wall motion abnormalities. The ejection fraction is estimated to be 65-70%. The E/A ratio is reversed with an elevated E/E', suggesting impaired early relaxation of the left ventricle with possible increased filling pressures. Right Ventricle: The right ventricle grossly appears normal in size with probable normal systolic function. Atria: The left atrium grossly appears normal in size. The right atrium grossly appears normal in size. There is no Doppler evidence for an interatrial shunt. Mitral Valve: There is mild to moderate mitral annular calcification. A vegetation on the mitral valve cannot be excluded. There is trace mitral regurgitation. Aortic Valve: The aortic valve is not well visualized. The aortic valve is mildly calcified. There is moderate aortic stenosis. The calculated aortic valve area is 1.0 cm2. The peak aortic velocity is 281 cm/sec. The aortic valve mean gradient is 16.7 mmHg. There is trace aortic regurgitation. Tricuspid Valve: The tricuspid valve is not well visualized. There is trace tricuspid regurgitation. Right ventricular systolic pressure is estimated to be 29 mmHg plus the clinically estimated CVP which cannot be estimated on this exam. Pulmonic Valve: The pulmonic valve is not well visualized. There is no other significant valvular heart disease. Great Vessels: The aortic root is not well visualized but is probably normal size. The ascending aorta is at the upper limits of normal in size. The aortic arch could not be visualized. The inferior vena cava was not well visualized. Pericardium/ Pleura There is no pericardial effusion. MMode/2D Measurements & Calculations LVIDd: 4.3 cm LA A2 area LVOT diam LV meyers. diameter/BSA LVIDs: 2.6 cm (cm/m^2): 2.2 FS: 38.3 % AoV Opening IVSd: 1.0 cm LA A4 area LVPWd: 0.98 cm asc Aorta LA length (vol) Diam: 3.3 cm LA vol: 60.4 ml LA vol index : 30.9 ml/m2 LV sys. diameter/BSA (cm/m^2): 1.3 Doppler Measurements & Calculations Ao V2 max MV E max marcello MV E/A: 0.76 TR max marcello : 281.0 cm/sec : 104.0 cm/sec Med Peak E' Marcello : 267.7 cm/sec Ao max PG MV A max marcello TR max PG : 31.6 mmHg : 137.3 cm/sec E/E' med: 17.7 : 28.7 mmHg Ao mean PG MV P1/2t: 94.5 msec Pulm A Revs Dur PA V2 max : 16.7 mmHg : 107.6 cm/sec LVOT Max Marcello MVA(VTI): 1.9 cm2 MV A dur: 0.12 sec PA mean PG : 128.0 cm/sec : 2.7 mmHg ROBIN(I,D): 1.0 cm sev ratio MV V2 mean MV P1/2t max marcello Ao V2 mean LV V1 max PG : 81.0 cm/sec : 193.3 cm/sec MV mean PG MVA(P1/2t): 2.3 cm2 Ao V2 VTI: 57.5 cm LV V1 VTI ROBIN(V,D): 1.0 cm2 : 26.1 cm MV V2 VTI MV dec time : 0.32 sec PA V2 mean ROBIN indexed to BSA Pulm A Revs Dur - MV : 76.8 cm/sec (cm^2/m^2): 0.52 A Dur: -0.01 msec Reading Physician:PM
[2016-02-13] VITALS (8 sets, daily range): BP systolic 156–179; BP diastolic 77–83; PULSE 75–92; RESP 16–20; O2SAT 93–95
--- NOTE | 2016-02-13 02:44 | NUR ---
Elevated Blood Pressure Patients bp at 0230 was 179/77 per NAC. Patient denied pain. Denied excessive coughing. Diuretics are scheduled for 829. Patient is resting comfortably.
[2016-02-13] MEDS: Albuterol-Ipratropium 3 mL Inhalation Solution NEB SCH ×4 (03:01→19:47)
[2016-02-13 07:00] LABS: INR 1.68 ratio
[2016-02-13] MEDS: Tiotropium 18mcg/Cap 5 Capsule Inhaler Kit INHALATION SCH (08:30)
[2016-02-13] MEDS: Fluticasone-Salmererol 250-50 Inhaler INHALATION SCH ×2 (09:33→21:46)
--- NOTE | 2016-02-13 11:37 | PROG NOTE ---
[address] [address] PROGRESS NOTE PATIENT: GLENN SIGALA : 1930 MR#: [id number] ADMIT: 02/09/2016 JOB ID: [id number] DATE: 02/13/2016 INFECTIOUS DISEASE FOLLOWUP NOTE: REASON FOR FOLLOWUP: COPD complicated by influenza. INTERVAL HISTORY: Today, the patient is pleasant, in no acute distress and not completely oriented. She denies significant shortness of breath, fevers, chills, or sweats. As previously, she is not oriented. PHYSICAL EXAMINATION: Temp 36.8, pulse 92, respiratory rate 16 to 18, blood pressure 158/83, saturating well on room air. She is in no acute distress. Oral cavity negative. Lungs with scattered crackles and a few rhonchi bilaterally. Abdomen benign. No skin rash. LABORATORIES: Include white count of 4800. She has a mild monocytosis with that. Platelets 183. Creatinine 1.52. LFT normal. Procalcitonin negative x2. Urine legionella and pneumococcal antigens are negative. QuantiFERON Gold is pending. The rapid viral PCR that we obtained yesterday is positive for influenza A. IMAGING: Her most recent chest x-ray two days ago showed trace subpulmonic effusion. IMPRESSION: It is now clear that this patient has influenza as a cause of the respiratory tract symptoms she had prior to admission. This is superimposed on chronic obstructive pulmonary disease but she seems to be tolerating it quite well. RECOMMENDATIONS: 1. I agree with the oseltamivir that was added last night after the results became available. 2. She is still on azithromycin but this could probably be truncated fairly soon, as this is her third day of this therapy, and, at most, I would give her five days, as it is really quite unclear what we are treating in addition to the influence.
--- NOTE | 2016-02-13 14:29 | PCM.PHAPRO ---
Progress Altered mental status, cough and fever/1 day WARFARIN DOSING PER PHARMACY Indication: Hx of DVT CHADsVASc = 6 Home dose: Warfarin 2 mg daily INR Goal: 2-3 Antiplatelet tx: ASA 81 mg daily DI: Azithromycin Lab Date Result Dose INR 02/09/16 1.74 home INR 02/10/16 1.75 2 mg INR 02/11/16 1.53 3 MG INR 02/12/16 1.53 3 MG INR 02/13/16 1.68 P: - Pt is currently subtherapeutic. Home dose was started on 02/10/16 - Will give one dose of warfarin 4 mg PO tonight - Pharmacy will continue to monitor INR/CBC/signs and symptoms of bleeding Jen Hough PharmD Feb 13, 2016 14:29
--- NOTE | 2016-02-13 16:11 | NUR ---
Social Work Continued Discharge Planning/Readiness for Discharge D: EMR reviewed. Pt is on day 4 of hospitalization for Sepsis, CAP. Pt also with Pneumonia and no Flu A positive. Pt lives at [facility]. Pt uses a w/c at baseline and is independent with transfers. SW met with family and discussed home health services. Pt and Pt's daughter agreeable to Home Health RN/PT at discharge. No Preference. Referral made to [facility], Access Given, F2F faxed and confirmed received. Pt to likely discharge tomorrow back to [place] with [facility] RN/PT. PT's daughter wishes for Pt to transition to assisted Living and will continue to work on this once Patient returns. Pt to travel via [facility] when medically stable. SW to arrange transport with [facility]. Contact number for daughter Lidia Kinney is [phone]. SW will provide update to daughter as to discharge. Dtr to also provide credit card number to [facility] over the phone prior to transport. SW will continue to follow. A: Pt who comes from [facility]. P; Pt to likely discharge tomorrow back to [place] with [facility] RN/PT. PT's daughter wishes for Pt to transition to assisted Living and will continue to work on this once Patient returns. Pt to travel via [facility] when medically stable. SW to arrange transport with [facility]. Contact number for daughter Lidia Kinney is [phone]. SW will provide update to daughter as to discharge. Dtr to also provide credit card number to [facility] over the phone prior to transport. SW will continue to follow. JOHN Ellsworth Addendum: 02/13/16 at 1616 by VIVI VILLAR Discharge to indicate Pt is able to discharge to assisted living once bed available.
--- NOTE | 2016-02-13 16:31 | PCM.PNMED ---
Subjective Date of Service Feb 13, 2016 Subjective denies any new issues/complaints. continues to have cough and some SOB Exam Vital Signs Vital Sign - Last Date Time Temp Pulse Resp B/P Pulse Ox O2 Delivery O2 Flow Rate FiO2 02/13/16 14:21 85 18 95 Room Air 02/13/16 14:08 36.6 156/81 Intake and Output 02/12/16 02/12/16 02/13/16 Cumulative From/Thru 15:00 23:00 07:00 02/09/16 14:38 - 02/13/16 06:15 Intake Total 1040 ml 654 ml 8890 ml Output Total 1450 ml 8620 ml Balance -410 ml 654 ml 270 ml Intake Oral 1040 ml 4240 ml IV Total 654 ml 4650 ml Output Urine Total 1450 ml 8620 ml # Voids 7 # Bowel Movements 0 0 General: Alert, Cooperative, No Acute Distress, Other (disoriented x 3) Eyes: Scleral Anicteric Mouth: Mucous Membr Moist/[place] Neck: Supple Chest & Lungs: Chest Wall Normal, Coarse breath sounds (bilat) Cardiovascular: Regular Rate/Rhythm Abdomen: Non-tender, Non-distended, Normoactive bowel tones, Soft Extremities: No cyanosis/clubbing/edma bilat Neurological: Grossly Neurologically Intact, Normal Speech IVs and Medications Medications Reviewed: Medications were reviewed in detail Lab and Diagnostics Result Diagram: 02/11/16 0710 02/11/16 0710 Microbiology Microbiology WILLIAM CULTURE BLOOD Preliminary 02/10/16-0919 Organism 1 POSITIVE BLOOD CULTURE GRAM STAIN RESULT GRAM POSITIVE COCCI ?STAPH BC BOTTLE Isolated from Aerobic Bottle of Set Drawn DATE CALLED: 02/10/16 TIME CALLED: 0847 CALLED BY: VANCE FLOOR/DOCTOR: ZELALEM/THAO FARFAN READ BACK YES TYPE OF DRAW NURSE COLLLECT TYPE NOT SPECIFIED TIME OF POSITIVITY 0827 GRAM STAIN RESULT GRAM POSITIVE COCCI ?STAPH BC BOTTLE2 Isolated from Anaerobic Bottle of Set Drawn DATE CALLED: 02/10/16 TIME CALLED: 0918 CALLED BY: VANCE FLOOR/DOCTOR: ZELALEM/THAO FARFAN READ BACK YES TYPE OF DRAW NURSE COLLECT TYPE NOT INDICATED TIME OF POSITIVITY 0900 X-Rays, CTs and MRIs PROCEDURE: X-RAY CHEST ONE VIEW, PORTABLE ([id number]) INDICATIONS: 86 year-old female with shortness of breath. TECHNIQUE: One view of the chest was acquired. COMPARISON: [facility], CR, CHEST 2VW, 09/06/2014, 17:49. [facility], CR, CHEST 2VW, 06/23/2014, 11:24. [facility], CR , CHEST 2VW, 07/14/2011, 12:21. FINDINGS: Surgical changes and devices: None. Lungs and pleura: No pleural effusions or pneumothorax. Lungs are clear. Mediastinum: Mediastinal contours appear normal. Heart size is normal. Bones and chest wall: No suspicious bony lesions. Overlying soft tissues appear unremarkable. IMPRESSION: No acute cardiopulmonary disease. Dictated by: Julio Rawls M.D. on 02/09/2016 at 14:01 Assessment & Plan 86-year-old lady with past medical history of peripheral vascular disease status post right BKA, fem/fem bypass, COPD, hypertension, history of DVT, history of bowel resection, diabetes was brought in by her caregiver due to confusion, fever and cough of one day. # Initially suspected sepsis /bacteremia due to community acquired pneumonia, POA - Met sepsis criteria: Initial Temp 38, HR 96,RR 25,LA 3,altered mental state/ confusion - Influenza A positive on PCR from 02/11, initially negative. - c/w Tamiflu (day 2) - Blood culture growing coag Negative staph (likely contamination) - appreciate ID consult. will f/u w/ recs - c/w Azithromycin for only couple of more days # Altered mental status due to acute metabolic encephalopathy from presenting sepsis, acute. poa. improving. - f/u # Significant peripheral vascular disease status post right BKA, fem/fem bypass - Continue aspirin, continue warfarin - Patient stopped statin by herself -Patient is very sensitive left leg. Peripheral neuropathy versus chronic ischemia # Hypertension, chronic - c/w Spironolactone and Lasix #COPD, chronic. stable - DuoNeb # History of DVT - Continue warfarin. INR sub-therapeutic today - f/u daily INR # Suspected systolic chronic CHF ruled out with Echo - patient on double diuretics (Lasix and Aldactone) - Echo showing EF 65%. # CKD. stable - Baseline creatinine 1.7 # urinary retention - Moya inserted - do voiding trial today Dispo: ? assisted living in 1-2 days VTE Mechanical Devices: Intermittant Pneumatic CD Resuscitation Status: DNR/DNI:Do Not Resuscitate/Intubate Roberto Wary Feb 13, 2016 16:31
--- NOTE | 2016-02-13 19:10 | NUR ---
activity pt stated very tired of being "inprisoned" in her bed. She was very happy to be up in W/C in room, she transferred with 1 assist for safety
--- NOTE | 2016-02-13 22:03 | NUR ---
refusal refuses constipation medication (senna)
[2016-02-14] VITALS (8 sets, daily range): BP systolic 148–157; BP diastolic 72–78; PULSE 75–85; RESP 16–20; O2SAT 94–98
--- NOTE | 2016-02-14 01:06 | NUR ---
confusion patient very forgetful of situation, place reoriented to place, time. patient still questions "where am I?" bed alarm on. no attempts to get oob. shade up. frequent checks.
[2016-02-14] MEDS: Albuterol-Ipratropium 3 mL Inhalation Solution NEB SCH ×4 (01:46→19:31)
[2016-02-14] MEDS ORDERED: TIOT18CA3 IH (03:29)
--- NOTE | 2016-02-14 05:55 | NUR ---
unable to void patient unable to [place] [facility] to bladder scan Addendum: 02/14/16 at 0603 by JESUS MARTELL RN bladder scan 463ml. notified . Addendum: 02/14/16 at 0618 by JESUS MARTELL RN dr Lyle morales straight cath
[2016-02-14 07:09] LABS: INR 1.89 ratio
[2016-02-14 07:21] LABS: Magnesium 2.1 mg/dL (1.6-2.6)
[2016-02-14] MEDS: Fluticasone-Salmererol 250-50 Inhaler INHALATION SCH ×2 (09:15→20:00)
[2016-02-14] MEDS: Tiotropium 18mcg/Cap 5 Capsule Inhaler Kit INHALATION SCH (09:16)
[2016-02-14] MEDS ORDERED: OSEL30CA PO ×2 (11:01→11:54)
--- NOTE | 2016-02-14 11:08 | PCM.DIMED ---
Discharge Instructions Date of Service Feb 14, 2016 Dates of Hospitalization Feb 09, 2016 at 14:58 Discharge Diagnosis Discharge Diagnosis # Initially suspected sepsis/bacteremia due to community acquired pneumonia but sepsis and symptoms now appear more likely due to acute Influenza A # Altered mental status due to acute metabolic encephalopathy from presenting sepsis, acute and [present on admission. Improved # History of peripheral vascular disease status post right BKA, fem/fem bypass # Hypertension, chronic. stable #COPD, chronic. stable # History of DVT on anticoagulation with Warfarin INR currently sub-therapeutic at 1.89 # Suspected systolic chronic CHF ruled out with Echocardiogram showing normal ejection fraction of 65%-70% # chronic kidney disease. stable # Acute urinary retention. present on admission. Resolved Diet Low fat, Low Sodium, Heart Healthy Activity No restrictions Call your provider Fever or Chills, Shortness of breath, Bleeding, Chest pain, Excessive diarrhea Patient Instructions Seek immediate medical attention if any new or worsening signs or symptoms occur. Follow-up plan 1. Followup at Coumadin/Pro-time clinic (or with primary care provider's office ) tomorrow to recheck your INR and adjust the Coumadin (Warfarin) dose as needed 2. Followup with primary care provider in 5-7 days Follow-up Provider: Zoila Lazaro Masoud Feb 14, 2016 11:08
--- NOTE | 2016-02-14 11:52 | PCM.PHAPRO ---
Progress Altered mental status, cough and fever/1 day WARFARIN DOSING PER PHARMACY Indication: Hx of DVT CHADsVASc = 6 Home dose: Warfarin 2 mg daily INR Goal: 2-3 Antiplatelet tx: ASA 81 mg daily DI: Azithromycin Lab Date Result Dose INR 02/09/16 1.74 home INR 02/10/16 1.75 2 mg INR 02/11/16 1.53 3 MG INR 02/12/16 1.53 3 MG INR 02/13/16 1.68 4 MG INR 02/14/16 1.89 P: - Pt is currently subtherapeutic. Home dose was started on 02/10/16 - Will give one dose of warfarin 4 mg PO tonight - Pharmacy will continue to monitor INR/CBC/signs and symptoms of bleeding Jen Hough PharmD Feb 14, 2016 11:52
--- NOTE | 2016-02-14 13:56 | NUR ---
Evaluation completed. Please go to "Notes" then click on "Assessments and Notes" (bottom left corner of screen). Then select appropriate discipline tab on top of screen.
--- NOTE | 2016-02-14 16:30 | NUR ---
Activity/ Pt is up in the wheelchair. 1 person assist. Tolerating activity well. Pt has been able to void this shift. She has had no c/o pain or discomfort. Care continues.
--- NOTE | 2016-02-14 16:45 | PROG NOTE ---
[address] [address] PROGRESS NOTE PATIENT: GLENN SIGALA : 1930 MR#: [id number] ADMIT: 02/09/2016 JOB ID: [id number] DATE: 02/14/2016 INFECTIOUS DISEASE FOLLOWUP NOTE: REASON FOR FOLLOWUP: COPD exacerbation caused by influenza A. INTERVAL HISTORY: Overnight the patient has felt relatively well. She has been anxious about an impending transfer to the [facility], but her shortness of breath has improved. No fevers, chills, or sweats. She has no cough. No GI symptoms. PHYSICAL EXAMINATION: Reveals an afebrile woman in no acute distress. Temp 36.3, pulse 82, respiratory rate 18, and she is saturating well on room air. Blood pressure 150/77. Lungs with coarse breath sounds bilaterally, with reasonable air exchange but occasional wheezing. No new skin rash. No GI findings on abdominal palpation. LABORATORIES: Include a white count last done three days ago 4800. Creatinine done today is 1.31, which is actually better. LFTs are normal. Procalcitonin functionally 0 on two occasions. QuantiFERON Gold is pending. Urine Legionella negative. Urine pneumococcal negative. MRSA screen negative. Recall that the multiplex PCR is positive for influenza AH3. The remainder of the cultures are negative, except for blood cultures which were contaminated. IMAGING: Our most recent imaging dates from three days ago and showed trace subpulmonic pleural effusion, otherwise clear lungs. IMPRESSION: This patient seems to be doing well with respect to her chronic obstructive pulmonary disease exacerbation which is at least in part caused by acute influenza A. She is currently receiving a combination of azithromycin as well as oseltamivir. She has currently received about half of her scheduled 10 doses of oseltamivir. RECOMMENDATIONS: 1. Will go ahead and stop the azithromycin as of tomorrow morning. 2. The patient should continue and finish all 10 doses of Tamiflu. 3. There are no additional Infectious Disease issues. Infectious Disease issues will go ahead and sign off at this time.
--- NOTE | 2016-02-14 17:37 | PCM.PNMED ---
Subjective Date of Service Feb 14, 2016 Subjective denies any new issues/complaints. continues to have cough and some SOB. Her daughter is concerned about patient's possible deconditioning and also concerned about patient's safety at independent living. She notes that patient refusing idea of assisted living. Had long discussion with patient and she is now convinced that given her memory deficits she will be safer at an assisted living. Exam Vital Signs Vital Sign - Last Date Time Temp Pulse Resp B/P Pulse Ox O2 Delivery O2 Flow Rate FiO2 02/14/16 14:57 82 18 94 02/14/16 13:11 36.3 150/77 Room Air Intake and Output 02/13/16 02/13/16 02/14/16 Cumulative From/Thru 15:00 23:00 07:00 02/09/16 14:38 - 02/14/16 06:06 Intake Total 400 ml 600 ml 200 ml 75985 ml Output Total 200 ml 300 ml 9120 ml Balance 400 ml 400 ml -100 ml 970 ml Intake Oral 400 ml 600 ml 200 ml 5440 ml IV Total 4650 ml Output Urine Total 200 ml 300 ml 9120 ml # Voids 1 1 9 # Bowel Movements 0 0 0 0 Exam General: Alert, Cooperative, No Acute Distress Eyes: Scleral Anicteric Mouth: Mucous Membr Moist/[place] Neck: Supple Chest & Lungs: Chest Wall Normal, Coarse breath sounds (bilat) Cardiovascular: Regular Rate/Rhythm Abdomen: Non-tender, Non-distended, Normoactive bowel tones, Soft Extremities: No cyanosis/clubbing/edema bilat Neurological: Grossly Neurologically Intact, Normal Speech IVs and Medications Medications Reviewed: Medications were reviewed in detail Lab and Diagnostics Result Diagram: 02/11/16 0710 02/14/16 0630 Microbiology Microbiology WILLIAM CULTURE BLOOD Preliminary 02/10/16-0919 Organism 1 POSITIVE BLOOD CULTURE GRAM STAIN RESULT GRAM POSITIVE COCCI ?STAPH BC BOTTLE Isolated from Aerobic Bottle of Set Drawn DATE CALLED: 02/10/16 TIME CALLED: 0847 CALLED BY: VANCE FLOOR/DOCTOR: ZELALEM/THAO Simpson BC READ BACK YES TYPE OF DRAW NURSE COLLLECT TYPE NOT SPECIFIED TIME OF POSITIVITY 0827 GRAM STAIN RESULT GRAM POSITIVE COCCI ?STAPH BC BOTTLE2 Isolated from Anaerobic Bottle of Set Drawn DATE CALLED: 02/10/16 TIME CALLED: 09 CALLED BY: VANCE FLOOR/DOCTOR: IVY S. READ BACK YES TYPE OF DRAW NURSE COLLECT TYPE NOT INDICATED TIME OF POSITIVITY 0900 X-Rays, CTs and MRIs PROCEDURE: X-RAY CHEST ONE VIEW, PORTABLE ([id number]) INDICATIONS: 86 year-old female with shortness of breath. TECHNIQUE: One view of the chest was acquired. COMPARISON: [facility], , CHEST 2VW, 09/06/2014, 17:49. [facility], CR, CHEST 2VW, 06/23/2014, 11:24. [facility], CR , CHEST 2VW, 07/14/2011, 12:21. FINDINGS: Surgical changes and devices: None. Lungs and pleura: No pleural effusions or pneumothorax. Lungs are clear. Mediastinum: Mediastinal contours appear normal. Heart size is normal. Bones and chest wall: No suspicious bony lesions. Overlying soft tissues appear unremarkable. IMPRESSION: No acute cardiopulmonary disease. Dictated by: Julio Rawls M.D. on 02/09/2016 at 14:01 Assessment & Plan 86-year-old lady with past medical history of peripheral vascular disease status post right BKA, fem/fem bypass, COPD, hypertension, history of DVT, history of bowel resection, diabetes was brought in by her caregiver due to confusion, fever and cough of one day. # Initially suspected sepsis /bacteremia due to community acquired pneumonia, POA - Met sepsis criteria: Initial Temp 38, HR 96,RR 25,LA 3,altered mental state/ confusion - Influenza A positive on PCR from 02/11, initially negative. - c/w Tamiflu (day 3) - Blood culture growing coag Negative staph (likely contamination) - appreciate ID consult. will f/u w/ recs - c/w Azithromycin for one more day # Altered mental status due to acute metabolic encephalopathy from presenting sepsis, acute. poa. improving. - f/u # Significant peripheral vascular disease status post right BKA, fem/fem bypass - Continue aspirin, continue warfarin - Patient stopped statin by herself -Patient is very sensitive left leg. Peripheral neuropathy versus chronic ischemia # Hypertension, chronic - c/w Spironolactone and Lasix #COPD, chronic. stable - DuoNeb # History of DVT - Continue warfarin. INR sub-therapeutic today - f/u daily INR # Suspected systolic chronic CHF ruled out with Echo - patient on double diuretics (Lasix and Aldactone) - Echo showing EF 65%. # CKD. stable - Baseline creatinine 1.7 # urinary retention - Moya inserted - do voiding trial today Dispo: d/c deferred till tomorrow until patient's daughter can secure a place at assisted living and for PT eval VTE Mechanical Devices: Intermittant Pneumatic CD Resuscitation Status: DNR/DNI:Do Not Resuscitate/Intubate Time spent 25 min Roberto Wray Feb 14, 2016 17:37
[2016-02-15 02:19] VITALS: PULSE 80; RESP 18; O2SAT 95
[2016-02-15] MEDS: Albuterol-Ipratropium 3 mL Inhalation Solution NEB SCH ×3 (02:19→14:18)
[2016-02-15 04:50] VITALS: BP 164/87; PULSE 72; RESP 18; O2SAT 94
--- NOTE | 2016-02-15 05:35 | NUR ---
/ GI Pt unable to void despite multiple efforts on bedpan and BSC. Bladder scan showed 560, I&O cath at 0500 only returned 300, pt reports unable to feel whether bladder is full or not. 2 small BM while on BSC. Able to transfer to BSC with SBA and FWW. Hourly rounding ongoing.
[2016-02-15 06:57] LABS: INR 2.44 ratio
[2016-02-15 08:04] LABS: BASOPHILS % (AUTO) 0.8 % (0-3); EOSINOPHILS % (AUTO) 4.6 % (0-5); MONOCYTES % (AUTO) 14.4 % (4-12); Mean Corpuscular Hemoglobin 25.2 pg (27.0-35.0); Mean Corpuscular Volume 80.3 fL (81-100); NEUTROPHILS % (AUTO) 59.3 % (40-74); Platelet Count 202 bil/L (150-400)
[2016-02-15 08:19] LABS: Magnesium 2.1 mg/dL (1.6-2.6); Phosphorus 3.2 mg/dL (2.5-4.9)
[2016-02-15] MEDS: Fluticasone-Salmererol 250-50 Inhaler INHALATION SCH (08:27)
[2016-02-15 08:51] VITALS: PULSE 82; RESP 18; O2SAT 95
[2016-02-15] MEDS: Tiotropium 18mcg/Cap 5 Capsule Inhaler Kit INHALATION SCH (11:15)
--- NOTE | 2016-02-15 11:25 | PCM.PHAPRO ---
Progress Altered mental status, cough and fever/1 day WARFARIN DOSING PER PHARMACY Indication: Hx of DVT CHADsVASc = 6 Home dose: Warfarin 2 mg daily INR Goal: 2-3 Antiplatelet tx: ASA 81 mg daily DI: Azithromycin Lab Date Result Dose INR 02/09/16 1.74 home INR 02/10/16 1.75 2 mg INR 02/11/16 1.53 3 MG INR 02/12/16 1.53 3 MG INR 02/13/16 1.68 4 MG INR 02/14/16 1.89 4 MG INR 02/15/16 2.44 P: - Pt is currently therapeutic. Home dose was started on 02/10/16 - Will give one dose of warfarin 2mg PO tonight - Pharmacy will continue to monitor INR/CBC/signs and symptoms of bleeding Jen Hough PharmD Feb 15, 2016 11:25
[2016-02-15 11:37] VITALS: BP 136/77; PULSE 84; RESP 16; O2SAT 95
--- NOTE | 2016-02-15 13:22 | NUR ---
Pt was having frequency and difficulty voiding. Bladder scanned pt with post residual of 500. Obtained order for a straight cath. Went to place straight cath and was unable to place d/t pt discomfort. Pt refused to have straight catheter placed. Gave pt more time to urinate per pt request. Pt was able to void 300. Bladder scanned pt afterward and had 100mL of residual. Pt denies abdominal discomfort. MD aware.
[2016-02-15 14:18] VITALS: PULSE 82; RESP 18; O2SAT 92
--- NOTE | 2016-02-15 17:02 | NUR ---
Discharge Pt d/c'd at 1700 via cabulance back to [place]. Discharge teaching and instruction done with pt. Hard copy of RX with pt. Pt to fill RX. Pt fo f/u with pcp about warfarin dosing. IV d/c'd intact. No items in the safe and no items in the pharmacy.
--- NOTE | 2016-02-17 15:17 | PCM.DC.MED ---
Discharge Summary Date of Service Feb 15, 2016 Dates of Hospitalization Date of Hospital Admission Feb 09, 2016 at 14:58 Date of Discharge: Feb 15, 2016 Providers: Admitting Physician: Jovi Thornton MD Primary Care Physician: Zoila Lazaro Attending Physician: Jovi Thornton MD Diagnosis at Time of Discharge Diagnosis at Time of Discharge # Initially suspected sepsis/bacteremia due to community acquired pneumonia but sepsis and symptoms now appear more likely due to acute Influenza A # Altered mental status due to acute metabolic encephalopathy from presenting sepsis, acute and [present on admission. Improved # History of peripheral vascular disease status post right BKA, fem/fem bypass # Hypertension, chronic. stable #COPD, chronic. stable # History of DVT on anticoagulation with Warfarin INR currently sub-therapeutic at 1.89 # Suspected systolic chronic CHF ruled out with Echocardiogram showing normal ejection fraction of 65%-70% # chronic kidney disease. stable # Acute urinary retention. present on admission. Resolved Procedures XRay, CTs & MRIs PROCEDURE: X-RAY CHEST ONE VIEW, PORTABLE ([id number]) INDICATIONS: 86 year-old female with shortness of breath. TECHNIQUE: One view of the chest was acquired. COMPARISON: [facility], , CHEST 2VW, 09/06/2014, 17:49. [facility], , CHEST 2VW, 06/23/2014, 11:24. [facility], , CHEST 2VW, 07/14/2011, 12:21. FINDINGS: Surgical changes and devices: None. Lungs and pleura: No pleural effusions or pneumothorax. Lungs are clear. Mediastinum: Mediastinal contours appear normal. Heart size is normal. Bones and chest wall: No suspicious bony lesions. Overlying soft tissues appear unremarkable. IMPRESSION: No acute cardiopulmonary disease. Dictated by: Julio Rawls M.D. on 02/09/2016 at 14:01 Brief History H&P performed by Dr. Thornton on 02/08 86-year-old lady with past medical history of peripheral vascular disease status post right BKA, fem/fem bypass, COPD, hypertension, history of DVT, history of bowel resection, diabetes was brought in by her caregiver due to confusion, fever and cough of one day. Her caregiver of 7 years went to see her today and found her confused. Patient was saying one of the CNAs was sleeping in her room while there was no one. Patient states she had dry cough and chest congestion which started yesterday. She also has malaise and fever. Patient has history of COPD, takes Symbicort and albuterol as needed. Patient noncompliant on her COPD inhalers as per caregiver. Denies sick contact. Denies chest pain. Denies abdominal pain. Denies nausea /vomiting. Last bowel movement 1 week ago. Denies urinary complaints In ED, febrile temp 38, BP 144/101, HR 96, saturating 95%,RR 25 WBC 8.4, neutrophils 79.7%, creatinine 1.6(at baseline) , lactic acid 3, urinalysis negative, troponin negative. Chest x-ray unremarkable. Blood culture sent IV fluids started, Levaquin 750 mg IV given. Admission requested for pneumonia. Hospital Course 86-year-old lady with past medical history of peripheral vascular disease status post right BKA, fem/fem bypass, COPD, hypertension, history of DVT, history of bowel resection, diabetes was brought in by her caregiver due to confusion, fever and cough of one day. # Initially suspected sepsis /bacteremia due to community acquired pneumonia, POA - Met sepsis criteria: Initial Temp 38, HR 96,RR 25,LA 3,altered mental state/ confusion - Influenza A positive on PCR from 02/11, initially negative. - c/w Tamiflu (day 3) - Blood culture growing coag Negative staph (likely contamination) - appreciate ID consult. will f/u w/ recs - c/w Azithromycin for one more day # Altered mental status due to acute metabolic encephalopathy from presenting sepsis, acute. poa. improving. - f/u # Significant peripheral vascular disease status post right BKA, fem/fem bypass - Continue aspirin, continue warfarin - Patient stopped statin by herself -Patient is very sensitive left leg. Peripheral neuropathy versus chronic ischemia # Hypertension, chronic - c/w Spironolactone and Lasix #COPD, chronic. stable - DuoNeb # History of DVT - Continue warfarin. INR sub-therapeutic today - f/u daily INR # Suspected systolic chronic CHF ruled out with Echo - patient on double diuretics (Lasix and Aldactone) - Echo showing EF 65%. # CKD. stable - Baseline creatinine 1.7 # urinary retention - Moya inserted - do voiding trial today The day of discharge, patient remained hemodynamically stable, afebrile, retain her urine after Moya was out however eventually was able to void, deemed safe for discharge, patient will finish Tamiflu for 5 days course Exam Vital Signs (Last) Date Time Temp Pulse Resp B/P Pulse Ox O2 Delivery O2 Flow Rate FiO2 02/15/16 14:18 82 18 92 02/15/16 11:37 36.5 136/77 Room Air Exam NAD, comfortably laying down on the bed no JVD, MMM, no LAD RRR, nl s1, s2 no mrg CTAB, no w,c S,ND,NT,normoactive BS+ warm, no edema, pulses 2/2 Test 02/09/16 13:18 02/09/16 13:34 02/09/16 18:25 02/11/16 07:10 Troponin T < 0.010ug/L (0.0-0.011) Urine Color Yellow (YELLOW) Urine Appearance Clear (CLEAR,HAZY) Urine pH 6.5 (5.0-8.0) Urine Specific [place] 1.015 (1.003-1.035) Urine Protein Tracemg/dL (NEG,TRACE) Urine Glucose (UA) Negativemg/dL (NEGATIVE) Urine Ketones Negativemg/dL (NEGATIVE) Urine Occult Blood Trace (NEGATIVE) Urine Nitrite Negative (NEGATIVE) Urine Bilirubin Negative (NEGATIVE) Urine Urobilinogen Normalmg/dL (NORMAL) Urine Leukocyte Esterase Trace (NEGATIVE) Urine RBC 0-2/hpf (0-2) Urine WBC 0-5/hpf (0-5) Urine Epithelial Cells Occasional/hpf (NONE-MOD) Urine Crystals None seen (NONE SEEN) Urine Bacteria Few/hpf (NONE-FEW) Urine Hyaline Casts None/lpf (NONE) Urine Granular Casts None seen (NONE SEEN) Urine Waxy Casts None seen (NONE SEEN) Urine Red Blood Cell Casts None seen (NONE SEEN) Urine White Blood Cell Casts None seen (NONE SEEN) Urine Mucus None seen (None Seen) Urine Trichomonas None seen (NONE SEEN) Urine Yeast None (NONE SEEN) Urinalysis Comment None Urine Culture Reflexed Indicated Urine Legionella pneumophilia Ag Negative (Negative) Lactic Acid Level 1.0mmol/L (0.4-2.0) Pro-B-Type Natriuretic Peptide 292.5pg/mL (0-738) Procalcitonin 0.11ng/mL (See Comment) Test 02/12/16 05:37 02/13/16 05:00 02/15/16 06:00 Vancomycin Level Trough 13.6mcg/mL TB Test (QFT) Gold In Tube Negative (Negative) TB Test (QFT) Incubation Comment (.) TB Test (QFT) Mitogen 1.06IU/mL (.) TB Test (QFT) Antigen 0.08IU/mL (.) TB Test (QFT) Antigen Minus Nil 0.03IU/mL (.) TB Test (QFT) TB - Nil 0.05IU/mL (.) TB Test (QFT) Positive Criteria Comment (.) TB Test (QFT) Interpretation Comment (.) Hemoglobin A1c 7.4% (4.8-5.6) White Blood Count 6.5th/mm3 (3.8-10.1) Red Blood Count 4.73mil/mm3 (3.90-5.20) Hemoglobin 11.9g/dL (12.0-15.6) Hematocrit 38.0% (35.0-46.0) Mean Corpuscular Volume 80.3fL (81-100) Mean Corpuscular Hemoglobin 25.2pg (27.0-35.0) Mean Corpuscular Hemoglobin Concent 31.3% (32.0-37.0) Red Cell Distribution Width 16.5% (12.3-15.4) Platelet Count 202bil/L (150-400) Neutrophils (%) (Auto) 59.3% (40-74) Lymphocytes (%) (Auto) 20.1% (14-46) Monocytes (%) (Auto) 14.4% (4-12) Eosinophils (%) (Auto) 4.6% (0-5) Basophils (%) (Auto) 0.8% (0-3) Prothrombin Time 26.6sec (8.1-12.5) Prothromb Time International Ratio 2.44ratio Sodium Level 142mEq/L (134-144) Potassium Level 4.4mEq/L (3.5-5.2) Chloride Level 99mEq/L (97-108) Carbon Dioxide Level 30mmol/L (18-29) Blood Urea Nitrogen 23mg/dL (8-27) Creatinine 1.45mg/dL (0.57-1.00) Estimat Glomerular Filtration Rate 49mL/min (>59) Glucose Level 137mg/dL (60-99) Calcium Level 9.3mg/dL (8.5-10.1) Phosphorus Level 3.2mg/dL (2.5-4.9) Magnesium Level 2.1mg/dL (1.6-2.6) Total Bilirubin 0.2mg/dL (0.0-1.2) Aspartate Amino Transf (AST/SGOT) 20U/L (0-50) Alanine Aminotransferase (ALT/SGPT) 25U/L (0-32) Alkaline Phosphatase 71U/L (25-165) Total Protein 7.3g/dL (6.4-8.4) Albumin 3.6g/dL (3.4-5.0) Microbiology Results Microbiology WILLIAM CULTURE BLOOD Preliminary 02/10/16-918 Organism 1 POSITIVE BLOOD CULTURE GRAM STAIN RESULT GRAM POSITIVE COCCI ?STAPH BC BOTTLE Isolated from Aerobic Bottle of Set Drawn DATE CALLED: 02/10/16 TIME CALLED: [id number] CALLED BY: VANCE FLOOR/DOCTOR: ZELALEM/THAO FARFAN READ BACK YES TYPE OF DRAW NURSE COLLLECT TYPE NOT SPECIFIED TIME OF POSITIVITY 0827 GRAM STAIN RESULT GRAM POSITIVE COCCI ?STAPH BC BOTTLE2 Isolated from Anaerobic Bottle of Set Drawn DATE CALLED: 02/10/16 TIME CALLED: 0918 CALLED BY: VANCE FLOOR/DOCTOR: ZELALEM/THAO FARFAN READ BACK YES TYPE OF DRAW NURSE COLLECT TYPE NOT INDICATED TIME OF POSITIVITY 0900 Discharge Medications Discharge Medications Budesonide/Formoterol 160-4.5 mcg Inh (Symbicort 160-4.5 mcg Inh) 120 Puff Inhaler 1 PUFF INHALATION BID (Reported) Furosemide (Furosemide) 20 Mg Tab 20 MG PO DAILY (Reported) Oseltamivir Phosphate (Tamiflu) 30 Mg Capsule 30 MG PO BID Prescribed by: RADHA DUMONT MD Spironolactone (Spironolactone) 25 Mg Tablet 25 MG PO DAILY (Reported) Tiotropium [place] (Spiriva) 18 Mcg Cap.w.dev 18 MCG IH DAILY (Reported) Warfarin Sodium (Warfarin Sodium) 2 Mg Tablet 2 MG PO DAILY (Reported) Followup Plan Disposition: intermediate facility Follow-up plan 1. Followup at [facility]madin[facility] clinic (or with primary care provider's office ) tomorrow to recheck your INR and adjust the Coumadin (Warfarin) dose as needed 2. Followup with primary care provider in 5-7 days Discharge Diet: Low fat, Low Sodium, Heart Healthy Discharge Activity: No restrictions Patient Instructions Seek immediate medical attention if any new or worsening signs or symptoms occur. Follow-up Provider: Zoila Lazaro Time spent 65 minutes Mary Cummins MD Feb 17, 2016 15:17
== END 2016-02-15 17:00 | DRG 871 ==
LOC: EDUNIT# 12:56 → SED 12:56 → EDBD 12:56 → OSC 14:58
PROVIDERS: ADMIT Internal Medicine; ATTEND Internal Medicine
DX: A41.9 Sepsis, unspecified organism (principal); G93.41 Metabolic encephalopathy; J10.01 Influenza due to other identified influenza virus with the same other identified influenza virus pneumonia; J44.1 Chronic obstructive pulmonary disease with (acute) exacerbation; E87.2 Acidosis; I82.599 Chronic embolism and thrombosis of other specified deep vein of unspecified lower extremity; I73.9 Peripheral vascular disease, unspecified; I10 Essential (primary) hypertension; E11.9 Type 2 diabetes mellitus without complications; Z91.19 Patient's noncompliance with other medical treatment and regimen; Z79.01 Long term (current) use of anticoagulants; Z66 Do not resuscitate

== ENCOUNTER 2016-07-03 14:34 | Inpatient (IN) | payer MEDICARE ==
[2016-07-03] VITALS (8 sets, daily range): BP systolic 97–177; BP diastolic 53–95; PULSE 77–105; RESP 16–35; O2SAT 90–97
[~2016-07-03] VITALS: Ht 160 cm; Wt 86.2 kg
[~2016-07-03 14:34] MED LIST changes: +FUR20 PO; -HYDR25TA4 PO; -LOV40 SQ; +OSEL30CA PO; +SPIR25TA3 PO; +SYMINH INHALATION; -TIOT18CA IH; +TIOT18CA3 IH; +WARF2TAB7 PO; -tpn
[2016-07-03] MEDS ORDERED: Ondansetron 2 mg/mL 2 mL Inj IVPUSH ONE (15:05)
[2016-07-03 15:07] LABS: BASOPHILS % (AUTO) 0.2 % (0-3); EOSINOPHILS % (AUTO) 0.3 % (0-5); MONOCYTES % (AUTO) 4.8 % (4-12); Mean Corpuscular Hemoglobin 25.2 pg (27.0-35.0); Mean Corpuscular Volume 77.1 fL (81-100); NEUTROPHILS % (AUTO) 89.9 % (40-74); Platelet Count 273 bil/L (150-400)
--- NOTE | 2016-07-03 15:14 | ED.REPORT ---
HPI-NVD Date of Service July 03, 2016 ED Provider: Jesu Acosta MD Patient is an 86 year old female with a history of COPD, peripheral vascular disease status post BKA, CHF and hospitalization for sepsis/influenza A on 02/08 who presents to the ED via EMS due to vomiting. Associated symptoms per the EMS include nausea, fever and body tremors. Prior to arrival to the ED, the patient was given 25mg of Phenergan. Per EMS, the patient was alert before given the medication. The patient is not currently on oxygen at home. Patient is currently on Coumadin. Nursing Notes Stated Complaint: NAUSEA/VOMITING Chief Complaint: General Complaint Nursing Notes Reviewed: Yes (Medite, meds not reconciled - on warfarin) Allergies: Coded Allergies: Quinolones (Verified Allergy, Unknown, 07/03/16) temafloxacin (Verified Adverse Reaction, Severe, 02/09/16) Scheduled Budesonide/Formoterol 160-4.5 mcg Inh (Symbicort 160-4.5 mcg Inh) 120 Puff Inhaler 1 PUFF INHALATION BID Furosemide (Furosemide) 20 Mg Tab 20 MG PO QAM Omeprazole (Omeprazole) 20 Mg Capsule.dr 20 MG PO QAM Spironolactone (Spironolactone) 25 Mg Tablet 25 MG PO QAM Tiotropium [place] (Spiriva) 18 Mcg Cap.w.dev 18 MCG IH QAM Warfarin Sodium (Warfarin Sodium) 2 Mg Tablet 2 MG PO DAILY EXCEPT MON/MYRTLE 3 MG MON/TH, 2 MG ALL OTHER DAYS Warfarin Sodium (Warfarin Sodium) 2 Mg Tablet 3 MG PO MON/THUR 3 MG MON/THURS, 2 MG ALL OTHER DAYS Scheduled PRN Guaifenesin (Liquituss GG) 200 Mg/5 Ml Liquid 100-200 MG PO q6hr PRN PRN For Cough General Time Seen by MD: 15:08 Chief Complaint Vomiting Hx Obtained From: EMS Arrived By: Ambulance Onset Occurred: Just prior to arrival Symptom Duration: Since onset Location: : No pain Recent Healthcare: Recent doctor visit, Recent hospitalization Past Medical History Past Medical History Notes: Daughter: Jessica, [phone] Last admit 02/09/16 thru 02/15/16 for sepsis/influenza A Past Medical History From EMR: 1. Significant for bowel obstruction, hospitalized and had a laparotomy and an intraabdominal abscess that was drained. She also had a small bowel resection for some bowel. 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 2. Peripheral vascular diseas (s/p R BKA and fem/fem bypass) 3. History of intraabdominal abscesses after abdominal aortic aneurysm repair. 4. COPD. 5. h/o DVT, on Coumadin. 6. Hypertension. Reports: Diabetes mellitus Past Surgical History Status post fem/fem bypass in 1989. Abdominal aortic aneurysm repair. Intraabdominal abscess drainage in the past as well as in March. Status post appendectomy. Status post right BKA. Family History noncontributory Smoking History Former Smoker Social History lives at [facility] Alcohol Use: Denies alcohol use Drug Use: Denies drug use Other Social History: , Local resident Ambulatory Status Independent Review of Systems Review of Systems Note: limited ROS due to patient's condition Unable to Obtain ROS Patient condition Constitutional: Reports: Fever GI: Reports: Nausea, Vomiting, Denies: Abdominal pain Complete sys rev & neg: except as marked. Respiratory: Reports: Shortness of breath, Denies: Non-productive cough Physical Exam Initial Vital Signs Vital Signs (First) Date Time Temp Pulse Resp B/P Pulse Ox O2 Delivery O2 Flow Rate FiO2 07/03/16 14:45 38.4 103 35 177/95 91 Room Air Initial VS: Reviewed, Vital signs abnormal (febrile, tachycardic, hypoxic) Appearance / Presentation: Positive: Ill appearing/not toxic GENERAL: nearly unresponsive was alert before given Phenergan prior to arrival to the ED would open eyes but not perform commands Abdomen: Atraumatic, Soft Tenderness/Guarding/Rebound: Positive: Tender RUQ... (Mild) multiple scars across the abdomen no fistula in place ENT: Atraumatic, Airway patent Mouth: Positive: Mucous membranes dry Cardiovascular: Regular rhythm, Heart sounds NL Heart Rate / Rhythm: Positive: Tachycardia Mental Status: Positive: Somnolent, Unresponsive Head / Eyes: Atraumatic, Normocephalic, PERRL, EOMI LOWER EXTREMITIES: right leg amputation below the knee 2+ edema of the left leg, looks chronic Psychiatric: Affect NL, Mood NL Interpretation & Diagnostics Interpretation & Diagnostics: ABDOMEN ULTRASOUND: IMPRESSION: Cholelithiasis however no other sonographic criteria for acute cholecystitis. Please correlate clinically and with LFTs. Bilateral renal cysts. Atrophic left kidney. Dictated by: Bulmaro Mayer M.D. on 07/03/2016 at 17:05 Approved by: Bulmaro Mayer M.D. on 07/03/2016 at 17:07 Lab Results Interpretation Result Diagram: 07/03/16 1450 07/03/16 1450 Test 07/03/16 14:50 07/03/16 15:14 White Blood Count 19.2th/mm3 (3.8-10.1) Red Blood Count 4.97mil/mm3 (3.90-5.20) Hemoglobin 12.5g/dL (12.0-15.6) Hematocrit 38.3% (35.0-46.0) Mean Corpuscular Volume 77.1fL (81-100) Mean Corpuscular Hemoglobin 25.2pg (27.0-35.0) Mean Corpuscular Hemoglobin Concent 32.6% (32.0-37.0) Red Cell Distribution Width 17.8% (12.3-15.4) Platelet Count 273bil/L (150-400) Neutrophils (%) (Auto) 89.9% (40-74) Lymphocytes (%) (Auto) 4.4% (14-46) Monocytes (%) (Auto) 4.8% (4-12) Eosinophils (%) (Auto) 0.3% (0-5) Basophils (%) (Auto) 0.2% (0-3) Prothrombin Time 25.5sec (8.1-12.5) Prothromb Time International Ratio 2.34ratio Sodium Level 139mEq/L (134-144) Potassium Level 4.9mEq/L (3.5-5.2) Chloride Level 96mEq/L (97-108) Carbon Dioxide Level 24mmol/L (18-29) Blood Urea Nitrogen 34mg/dL (8-27) Creatinine 1.77mg/dL (0.57-1.00) Estimat Glomerular Filtration Rate 39mL/min (>59) Glucose Level 207mg/dL (60-99) Calcium Level 9.7mg/dL (8.5-10.1) Magnesium Level 1.8mg/dL (1.6-2.6) Total Bilirubin 1.1mg/dL (0.0-1.2) Aspartate Amino Transf (AST/SGOT) 264U/L (0-50) Alanine Aminotransferase (ALT/SGPT) 176U/L (0-32) Alkaline Phosphatase 239U/L (25-165) Troponin T 0.010ug/L (0.0-0.011) Total Protein 8.7g/dL (6.4-8.4) Albumin 4.0g/dL (3.4-5.0) Lipase 44U/L (13-60) Urine Color Straw (YELLOW) Urine Appearance Hazy (CLEAR,HAZY) Urine pH 6.0 (5.0-8.0) Urine Specific [place] 1.010 (1.003-1.035) Urine Protein Negativemg/dL (NEG,TRACE) Urine Glucose (UA) Negativemg/dL (NEGATIVE) Urine Ketones Negativemg/dL (NEGATIVE) Urine Occult Blood Negative (NEGATIVE) Urine Nitrite Negative (NEGATIVE) Urine Bilirubin Negative (NEGATIVE) Urine Urobilinogen Normalmg/dL (NORMAL) Urine Leukocyte Esterase Negative (NEGATIVE) Urine RBC 0-2/hpf (0-2) Urine WBC 0-5/hpf (0-5) Urine Epithelial Cells Occasional/hpf (NONE-MOD) Urine Crystals None seen (NONE SEEN) Urine Bacteria Moderate/hpf (NONE-FEW) Urine Hyaline Casts None/lpf (NONE) Urine Granular Casts None seen (NONE SEEN) Urine Waxy Casts None seen (NONE SEEN) Urine Red Blood Cell Casts None seen (NONE SEEN) Urine White Blood Cell Casts None seen (NONE SEEN) Urine Mucus None seen (None Seen) Urine Trichomonas None seen (NONE SEEN) Urine Yeast None (NONE SEEN) Urinalysis Comment None Urine Culture Reflexed Indicated Lab Results Interpretation: CBC severe leukocytosis CMP slightly worsened renal insufficiency, mild hyperglycemia Liver function tests newly elevated, lipase normal Lactic acid elevated Blood cultures 2 pending UA negative INR therapeutic ECG Interpretation ECG Interpretation: sinus tachycardia, rate 102 Q waves inferiorly No acute changes from previous EKG but comparison is difficult due to quality of previous Time: 15:22 Interpreted by: ED physician X-Ray Chest Interpretation Chest Xray Interpretation: IMPRESSION: Minimal unchanged costophrenic angle blunting, possibly related to scarring versus chronic effusions. Dictated by: Coretta Ji M.D. on 07/03/2016 at 16:25 Approved by: Coretta Ji M.D. on 07/03/2016 at 16:25 Interpretation / Wet Read by: Interpret - Radiologist CT Head Interpretation IMPRESSION: Severely motion degraded examination. Within this constraint, no gross acute intracranial process. Dictated by: Bulmaro Mayer M.D. on 07/03/2016 at 17:15 Approved by: Bulmaro Mayer M.D. on 07/03/2016 at 17:16 Interpretation / Wet Read by: Interpret - Radiologist CT Abd / Pelvis Interpretation IMPRESSION: Overall, no acute abnormality seen. Cholelithiasis Appendix not definitely visualized. Recommend clinical and laboratory correlation. Age-indeterminate T12 compression fracture. Incidental colonic diverticulosis. Dictated by: Bulmaro Mayer M.D. on 07/03/2016 at 17:11 Approved by: Bulmaro Mayer M.D. on 07/03/2016 at 17:15 Interpretation / Wet Read by: Bernie - Radiologist Re-Eval/Medical Decision Med Decision/Clinical Course This is an 86-year-old female presents from a local assisted with a reported complaint of nausea and vomiting. I am not able to get much history. The patient had nausea and vomiting for EMS and received 25 mg of promethazine en route, and is clinically sedated on arrival the department and a neighbor brought much history. Talking with the family, the patient even when alert has severe dementia and is a poor historian. I do not know when symptoms started, exactly what symptoms prompted the call, or the events beyond what she described above. On arrival the patient's febrile , tachycardic, tachypneic, and relatively hypoxic-although it records indicates she has COPD, it is unclear she is on O2 or what her baseline saturations are. Overall presentation is highly concerning for sepsis. Her lungs however are clear, her abdomen is trace tenderness, not well localized , this does seem to be some of the right upper quadrant, but her abdominal exams inconsistent between exams without mao peritonitis clinically evident. A workup was pursued. Given her altered mental status, anticoagulate status a head CT was obtained that was negative. A chest x-ray reveals no clear acute disease but there is chronic blunting of the right costophrenic angle, overt signs of pneumonia. Blood work was notable for leukocytosis, lactic acidosis, and newly elevated LFTs and superimposed acute renal insufficiency on chronic renal insufficiency. At this point an ultrasound was obtained, and revealed gallstones-but did not reveal clinical findings or radiographic findings of cholecystitis. Interestingly the common bile duct was not found to be dilated. The patient received empiric antibiotics for sepsis with Zosyn and vancomycin given she has a history of a graft and abscess in the past and is on daily Cipro at the assisted following this abscess which occurred almost [address] was obtained, the patient was not in any condition to take by mouth, and renal insufficiency prohibited IV contrast. However no clear pathology was evident on CT imaging. The patient received IV fluids, rectal acetaminophen for the fever, and clinically improved over the course of her stay. She became more alert, although remained pleasantly demented had no specific complaint when I interviewed her. This further argues that the clinical sedation initially present, was secondary to the Phenergan. I have discussed the case with Dr. Tirado the surgeon given the presentation of the patient and sepsis, with gallstones, abnormal LFTs-but overall the patient' s a terrible surgical candidate. He plans to see the patient this evening. I have also noted that the patient's previous admission in February the patient is DNR/DNI, has no CODE STATUS before came with the patient. Finally I discussed the patient with the daughter is aware the current status, please see her in name and phone number (Jessica [phone]) he lives in [place], plans to come up tomorrow. The patient's being admitted for continued supportive and medical management. Source of Hx: Old records Re-Evaluation/Progress : Time of Eval: 17:24 Re-Evaluation/Progress Note: Rechecked patient who reports that she is not currently experiencing any pain. Her abdomen is tender to palpation but not hurting. Discussed plan for admit. The patient understands and agrees to the plan for admit. All questions were addressed. Consultation #1: Referral / Consult Name: Trip Tirado MD Consulted With: Surgeon Call Returned at: 17:26 Data Report Analyst: Will see patient, Agrees with eval, Agrees with plan Consultation #2: Referral / Consult Name: Nicholas Watson MD Consulted With: Hospitalist Call Returned at: 17:35 Data Report Analyst: Agrees with eval, Agrees with plan, Accepts admit Differential Diagnosis: Positive: Dehydration, Negative: C. diff colitis, Crohn's disease, Drug overdose, Kimber-Morales syndrome, Migraine headache, Pancreatitis, Counseled Regarding: Diagnosis, Lab results, Need for admission Discharge & Departure Impression: Primary Impression: Sepsis Sepsis type: sepsis due to unspecified organism Qualified Code: A41.9 - Sepsis, unspecified organism Additional Impressions: Nausea and vomiting Vomiting type: unspecified Vomiting Intractability: non-intractable Qualified Code: R11.2 - Nausea with vomiting, unspecified Cholelithiasis Cholelithiasis location: gallbladder Cholecystitis presence: without cholecystitis Biliary obstruction: without biliary obstruction Qualified Code : K80.20 - Calculus of gallbladder without cholecystitis without obstruction Acute renal insufficiency Anticoagulated on warfarin Elevated liver function tests Disposition: ADMITTED TO HOSPITAL Discharge Condition All VS Reviewed: Yes Condition: Stable Referrals: Zoila Lazaro (PCP) Crit Care Except Billable Proc Time Spent: 30-74 minutes Services Performed: Patient management by me, Time spent at bedside, Reviewing test results, Reviewing imaging, Discussing patient care, Documentation in record, Time with fam/surrogate Scribe Attestation Portions of this note were transcribed by Sharri Powell. I, Dr. Acosta personally performed the history, physical exam and medical decision-making; I reviewed and confirmed the accuracy of the information in the transcribed note. Signed by: Farhat Flores, 07/03/16 and 1550 copies to: Zoila Lazaro Matthew F MD July 03, 2016 15:14 Jada Powell July 03, 2016 15:22
[2016-07-03 15:20] LABS: INR 2.34 ratio
[2016-07-03 15:26] LABS: TROPONIN T 0.01 ug/L (0.0-0.011)
[2016-07-03 15:31] LABS: APPEARANCE,URINE HAZY (CLEAR,HAZY); COLOR,URINE STRAW (YELLOW)
[2016-07-03 15:32] LABS: OCCULT BLOOD,URINE NEGATIVE (NEGATIVE); UROBILINOGEN,URINE NORMAL (NORMAL)
[2016-07-03 15:38] LABS: Magnesium 1.8 mg/dL (1.6-2.6)
[2016-07-03] MEDS ORDERED: Piperacillin-Tazo 3.375 Gm Inj 3.375 GM in Dextrose 5% Minibag Plus 50 ML IV ONE (15:45)
[2016-07-03] MEDS ORDERED: 0.9% Sodium Chloride 1,000 ML IV ONE ×2 (15:50)
[2016-07-03] MEDS ORDERED: OMEP20CA11 PO (16:17)
[2016-07-03] MEDS ORDERED: WARF2TAB7 PO (16:17)
[2016-07-03] MEDS ORDERED: GUAI200L3 PO (16:17)
[2016-07-03] MEDS ORDERED: Vancomycin Dose per Pharmacist XX ONE (16:20)
--- NOTE | 2016-07-03 16:27 | DRSVH ---
PROCEDURE: X-RAY CHEST ONE VIEW, PORTABLE ([id number]) INDICATIONS: Tachypnic TECHNIQUE: One view of the chest was acquired. COMPARISON: [facility], CR, XR CHEST 1VW (PORTABLE), 02/11/2016, 8:10. FINDINGS: Surgical changes and devices: None. Lungs and pleura: There is minimal blunting of the costophrenic angles, unchanged. Mediastinum: Mediastinal contours appear normal. Heart size is normal. Bones and chest wall: No suspicious bony lesions. Overlying soft tissues appear unremarkable. IMPRESSION: Minimal unchanged costophrenic angle blunting, possibly related to scarring versus chroni c effusions. Dictated by: Coretta Ji M.D. on 07/03/2016 at 16:25 Approved by: Coretta Ji M.D. on 07/03/2016 at 16:25
[2016-07-03] MEDS ORDERED: Vancomycin Inj 1,750 MG in 0.9% Sodium Chloride 500 ML IV ONE (16:45)
--- NOTE | 2016-07-03 17:12 | DRSVH ---
PROCEDURE: US ABDOMEN INDICATIONS: ro cholecystitis/cholangitis TECHNIQUE: Real-time scanning was performed of the abdominal and retroperitoneal organs, with image documentatio n. COMPARISON: None. FINDINGS: Liver length: 15.85 cm Gallbladder Wall Thickness: 1.20 mm CHD: Not seen CBD: 3.20 mm Spleen length: 10.28 cm Right kidney length: 10.46 cm Left kidney length: 7.38 cm Aorta(Proximal): 2.27 cm Aorta(Mid): 2.59 cm Aorta(Distal): Not seen RCIA: Obscured by shadowing bowel gas LCIA: Obscured by shadowing bowel gas Liver: Liver is normal in size and homogeneous in echotexture. Gallbladder: There are gallstones. No sonographic Mcintyre sign or wall thickening Biliary ducts: Intrahepatic bile ducts are non-dilated. Extrahepatic bile duct caliber is normal. Normal is 6-7 mm or less in diameter, or 10 mm or less post-cholecystectomy. Pancreas: Pancreatic head and tail are not well-seen Spleen: Spleen is normal in size and homogeneous in echotexture. Kidneys: There is atrophy of the left kidney. No hydronephrosis or nephrolithiasis. No solid masses . Right renal cyst in the lower pole measuring 1.3 x 1.2 x 1.4 cm. There is a cyst in the upper pole left kidney measuring 2.1 x 1.7 x 1.6 cm. Aorta: Visualized aorta is normal in caliber at less than 3 cm. Iliacs: Proximal common iliac arteries are normal in caliber at less than 2.5 cm. IVC: Intrahepatic inferior vena cava is patent. Miscellaneous: No free abdominal fluid. IMPRESSION: Cholelithiasis however no other sonographic criteria for acute cholecystitis. Please correlate clinic ally and with LFTs. Bilateral renal cysts. Atrophic left kidney. Dictated by: Bulmaro Mayer M.D. on 07/03/2016 at 17:05 Approved by: Bulmaro Mayer M.D. on 07/03/2016 at 17:07
--- NOTE | 2016-07-03 17:16 | DRSVH ---
PROCEDURE: CT ABDOMEN AND PELVIS WITHOUT CONTRAST ([id number]) INDICATIONS: Abd pain, fever, abnl LFT TECHNIQUE: Noncontrast 5 mm thick sections acquired from the diaphragms to the symphysis. 5 mm coronal and sagi ttal reformats were then performed. For radiation dose reduction, the following was used: automated exposure control, adjustment of mA and/or kV according to patient size. COMPARISON: [facility], CT, ABD/PELVIS W/CON ([facility]), 04/23/2009, 0:28. FINDINGS: Image quality: Excellent. ABDOMEN: Lung bases: Scattered atelectasis in the visualized lung bases. Solid organs: Liver and spleen are normal in size. Gallbladder contains less than 5 mm gallstones. No definite gallbladder wall thickening or pericholecystic inflammation. Pancreas is normal in conto urs. No adrenal nodules. Bilateral renal cortical atrophy/scarring. No hydronephrosis. No nephrolith iasis identified. Peritoneum and bowel: Unenhanced bowel loops demonstrate normal wall thickness and caliber. No free fluid or air. Colonic diverticula incidentally noted. The appendix is not clearly identified and ma y be surgically absent. Recommend clinical correlation. Nodes and vessels: No retroperitoneal or mesenteric adenopathy by size criteria. Post surgical kaufman es related to aortobiiliac graft a limited evaluation in the absence of IV contrast. Miscellaneous: No ventral hernias. PELVIS: Genitourinary: The bladder is decompressed with a Moya catheter is present Miscellaneous: No inguinal hernias or adenopathy. Bones: T12 compression fracture with approximately 40% height loss, this is technically indeterminate IMPRESSION: Overall, no acute abnormality seen. Cholelithiasis Appendix not definitely visualized. Recommend clinical and laboratory correlation. Age-indeterminate T12 compression fracture. Incidental colonic diverticulosis. Dictated by: Bulmaro Mayer M.D. on 07/03/2016 at 17:11 Approved by: Bulmaro Mayer M.D. on 07/03/2016 at 17:15
--- NOTE | 2016-07-03 17:18 | DRSVH ---
PROCEDURE: CT BRAIN WITHOUT CONTRAST ([id number]) INDICATIONS: altered, anticoagulated TECHNIQUE: Noncontrast 4.5 mm thick angled axial sections acquired from the foramen magnum to the vertex, with c oronal reformats. COMPARISON: None. FINDINGS: Image quality: Suboptimal evaluation due to uncontrollable severe motion artifact. CSF spaces: Basal cisterns are patent. No extra-axial fluid collections. The ventricles are symmet corey in size and shape. Brain: No intracranial bleeds or masses. There is cerebral volume loss for age, with resultant vent ricular and sulcal prominence. There are periventricular and deep white matter chronic small vessel ischemic changes. There is intracranial internal carotid artery atherosclerosis. Skull and face: Calvarium and visualized facial bones appear intact, without suspicious lesions. Sinuses: Visualized sinuses and mastoids are clear. IMPRESSION: Severely motion degraded examination. Within this constraint, no gross acute intracranial process. Dictated by: Bulmaro Mayer M.D. on 07/03/2016 at 17:15 Approved by: Bulmaro Mayer M.D. on 07/03/2016 at 17:16
[2016-07-03] MEDS ORDERED: 0.9% Sodium Chloride 1,000 ML IV SCH (17:44)
[2016-07-03] MEDS ORDERED: Lactated Ringer's 1,000 ML IV SCH (17:44)
[2016-07-03] MEDS ORDERED: Alum-Mag Hydrox-Simeth 30 mL Suspension PO PRN (17:45)
[2016-07-03] MEDS ORDERED: Polyethylene Glycol (PEG) 17 Gm Powder PO PRN (17:45)
[2016-07-03] MEDS ORDERED: Ondansetron 2 mg/mL 2 mL Inj IVPUSH PRN (17:45)
--- NOTE | 2016-07-03 18:32 | NUR ---
ED to [facility] Pt arrived to [facility] at approximately 1820 via gurney from ED. Report taken from Celi SALAS RN. VSS. Skin check showed blanchable redness on coccyx area. Catheter intact. Cleaned and changed pt and gown. Care continues.
--- NOTE | 2016-07-03 18:56 | PCM.HPMED ---
Subjective Date of Service July 03, 2016 Primary Provider: Admitting Physician: Nicholas Watson MD Primary Care Physician: Zoila Lazaro Attending Physician: Nicholas Watson MD Admit Status: From the Emergency Department, Admit to [facility] Team Chief Complaint: 86-year-old woman with history of peripheral vascular disease presents with acute nausea vomiting and sepsis History of Present Illness: The patient has mild cognitive impairment but lives independently at [facility]. She reports that she was in her usual state of health yesterday. She went to bed with a headache. She awakened today and experienced multiple bouts of nausea and vomiting which she attributed to "stomach flu." She endorses chronic intermittent abdominal pain and seems to localizes to the right lower quadrant. She denies that this was any worse today. She does not recall fever sweats or shaking chills. She denies any continued headache, stiff neck, cough , dysuria. Emergency medical services were contacted by staff at [facility] and when they arrived they administered 25 mg Phenergan, following which she became obtunded. She is subsequently recovered relatively normal mental status. At emergency department she was noted to have high fever tachycardia and tachypnea , and admitted for treatment of sepsis complicated by medication induced encephalopathy. Review of Systems: 11 systems were reviewed. Significant findings included in history of present illness. Additional findings include chronic left lower extremity pain. Allergies Coded Allergies: Quinolones (Verified Allergy, Unknown, 07/03/16) temafloxacin (Verified Adverse Reaction, Severe, 02/09/16) Home Medications Symbicort twice a day Furosemide 20 mg daily Guaifenesin every 6 hours when necessary Omeprazole 20 mg daily Spironolactone 25 mg daily Kariva 18 g daily Warfarin 2 mg daily alternating with 3 mg on 2 days per week PMH # Peripheral vascular disease - status post femorofemoral bypass, status post right BKA amputation # History of abdominal abscess - reportedly with prolonged antibiotic therapy, although not on current med reconciliation list # 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 # COPD - 60 year smoking # Mild cognitive impairment Family History Father at young age due to trauma Mother with cancer of unspecified source 2 children - daughter alive and well, one child due to hepatitis C and cirrhosis Social History Occupation: retired department store general manager Hx Alcohol Use: No Hx Substance Use: No Hx Tobacco Use: Yes (quit last May) Smoking Status: Former Smoker Living Arrangement: Assisted Living (ambulates primarily by wheelchair, able to transfer. Does not like to use right lower extremity prosthesis) Exam Vital Signs Vital Sign - Last Date Time Temp Pulse Resp B/P Pulse Ox O2 Delivery O2 Flow Rate FiO2 07/03/16 18:24 95 07/03/16 18:23 37.0 20 99/59 96 Room Air Exam Constitutional: Obese woman no acute distress; vital signs noted Eyes: Pupils 4 mm, sclerae anicteric, no conjunctival pallor, ENMT: ears, nose atraumatic; oral mucosa moist Neck: supple, JVD absent Chest: symmetric, no pain or lesions Resp: Coarse breath sounds, no wheezes, rales or dullness Cardiac: S1, S2, regular, no murmur Abdomen: bowel sounds present, nontender, no organomegaly Musculoskeletal: RLE BKA, left calf with erythema and atrophic skin Skin and soft tissues: no rash; trace pitting edema left lower extremity Peripheral pulses: Diminished in feet Lymphatic: no adenopathy cervical Neurological: Cranial Nerves - face symmetric Motor - 5/5 strength, normal tone Coordination - normal movement, no tremor Psych & Mental Status - oriented, makes jokes, mild cognitive deficits Lab and Diagnostics Labs Lactic acid 3.5 ALT/AST 176/264; alkaline phosphatase 239; total bilirubin 1.1 Urinalysis unremarkable Result Diagram: 07/03/16 1450 07/03/16 1450 X-Rays, CTs and MRIs PROCEDURE: X-RAY CHEST ONE VIEW, PORTABLE ([id number]) IMPRESSION: Minimal unchanged costophrenic angle blunting, possibly related to scarring versus chronic effusions. Dictated by: Coretta Ji M.D. on 07/03/2016 at 16:25 PROCEDURE: CT BRAIN WITHOUT CONTRAST ([id number]) IMPRESSION: Severely motion degraded examination. Within this constraint, no gross acute intracranial process. Dictated by: Bulmaro Mayer M.D. on 07/03/2016 at 17:15 PROCEDURE: US ABDOMEN FINDINGS: Liver length: 15.85 cm Gallbladder Wall Thickness: 1.20 mm Liver: Liver is normal in size and homogeneous in echotexture. Gallbladder: There are gallstones. No sonographic Mcintyre sign or wall thickening Biliary ducts: Intrahepatic bile ducts are non-dilated. Extrahepatic bile duct caliber is normal. Normal is 6-7 mm or less in diameter, or 10 mm or less post-cholecystectomy. IMPRESSION: Cholelithiasis however no other sonographic criteria for acute cholecystitis. Please correlate clinically and with LFTs. Bilateral renal cysts. Atrophic left kidney. Dictated by: Bulmaro Mayer M.D. on 07/03/2016 at 17:05 PROCEDURE: CT ABDOMEN AND PELVIS WITHOUT CONTRAST ([id number]) IMPRESSION: Overall, no acute abnormality seen. Cholelithiasis Appendix not definitely visualized. Recommend clinical and laboratory correlation. Age-indeterminate T12 compression fracture. Incidental colonic diverticulosis. Dictated by: Bulmaro Mayer M.D. on 07/03/2016 at 17:11 . 12-lead ECG 07/03/16 15:22 sinus tachycardia 102 bpm, left axis deviation, LAD, old Q waves III, aVF, no acute ST-T wave changes. Assessment & Plan 86-year-old woman with history of COPD and peripheral vascular disease related to tobacco abuse presents with acute onset nausea vomiting and sepsis. # Severe Sepsis, acute, present on admission. SIRS criteria on admission heart rate 105, respiratory rate 35, temperature 39.6, leukocytosis 19.2. Associated with hypoxia 90% on room air, and acute kidney injury creatinine 1.77. Lactic acidosis elevated 3.5. No hypotension. - Aggressive fluid resuscitation - Careful intake and output with Moya catheter to maintain urine output greater than 0.5 [id number] - Serial lactates with resuscitation until less than 2.0 - Antibiotic therapy for presumed abdominal infectious source # Abdominal inflammatory process, acute, present on admission. Presenting symptoms are nausea and vomiting. Associated laboratory findings include elevated transaminases. She gives history of intermittent right lower quadrant pain, although not significantly increased at present. There is no diarrhea. Abdominal imaging reveals choleithiasis but no gallbladder inflammation or other hepatic abnormalities. CT imaging limited to noncontrast study but reveals no obvious intra-abdominal abscess. Chest x-ray and urinalysis are unremarkable. Differential diagnosis is diverticular abscess, viral gastroenteritis, bowel ischemia, basilar pneumonia. Blood cultures pending. - Broad-spectrum antibiotic coverage (Zosyn plus vancomycin) for gram-negative rods, anaerobes and enterococcal infection. - Consider contrast-enhanced CT scanning and if renal function improves with hydration - Repeat chest x-ray 2 views after hydration # Acute kidney injury, present on admission. - Follow BMP with hydration - Plan to revise antibiotics as soon as possible # COPD, chronic. No evidence of acute respiratory process - Bronchodilator when necessary # Hyperglycemia, acute. - Monitor blood glucose - Insulin correctional scale; revised to basal bolus if she is persistently hyperglycemic # History of thromboembolic disease, chronic. - Pharmacy to manage warfarin # Peripheral vascular disease, chronic. Pain Evaluation: Adequate Pain Control VTE Prophylaxis: Other Resuscitation Status: DNR/DNI:Do Not Resuscitate/Intubate Time spent 70 minutes Nicholas Watson MD July 03, 2016 18:56
[2016-07-03] MEDS: 0.9% Sodium Chloride 1,000 ML IV SCH (19:37)
--- NOTE | 2016-07-03 19:37 | NUR ---
Memory Pt states she has had problems remembering things for awhile, unable to recall how long. Alert to name, date intermittently alert to place. Care continues.
--- NOTE | 2016-07-03 19:55 | NUR ---
Admit nurse note Admission assessment completed with assistance from records from [facility] as pt. has poor memory and poor communication. Pt. denies complaints aside from thirst, though she says she coughs and chokes once in a while on food and water. Pt. to be supervised with first intake. Note on White board. Skin protective measures implemented due to confusion and BKA. Pt. states she uses a walker and w/c at home and has had multiple falls. Pt. oriented to room, call sanchez and fall precautions. Med history obtained from APR and entered by Ed pharmacist. Report given to Ramesh Jones.
[2016-07-03] MEDS: Albuterol-Ipratropium 3 mL Inhalation Solution NEB PRN (20:21)
--- NOTE | 2016-07-03 22:28 | CONS ---
[address] [address] CONSULTATION REPORT PATIENT: GLENN SIGALA : 1930 MR#: [id number] ADMIT: 07/03/2016 JOB ID: [id number] DATE OF SERVICE: CHIEF COMPLAINT/IDENTIFICATION: Dr. Jesu Acosta and the hospitalist service has asked me to consult on this 86-year-old woman who presents with nausea, vomiting and abdominal pain. HISTORY OF PRESENT ILLNESS: History is obtained from the chart and from the patient. Reportedly, she began having nausea and emesis this morning. She continued to pass gas. She felt that she had some abdominal pain. It is not clear to me why Emergency Medical Services was contacted, but they went to [facility] and gave her 25 mg of Phenergan, following which she became obtunded. She was brought to our emergency department, where she was reportedly febrile, though I do not see any recorded elevated temperature. Workup included abdominal CT and head CT. She has been admitted to the hospital. According to the patient, and as best as I can obtain from the chart, she is currently now near or at her baseline mental status. She denies significant abdominal pain. She is not hungry. PAST MEDICAL HISTORY: 1. Known peripheral vascular disease. 2. History of DVT, on Coumadin. 3. History of hypertension. 4. History of diabetes mellitus. 5. History of COPD. 6. History of a previous intraabdominal abscess with history of laparoscopy or laparotomy. MEDICATIONS: Symbicort, furosemide, guaifenesin, omeprazole, spironolactone, Kariva, warfarin. ALLERGIES: 1. QUINOLONES. 2. . SOCIAL HISTORY: She lives in some sort of assisted living situation. She tells me that she does not drive as she has had a previous right below-knee amputation. She recently gave up paying her bills to her daughter. FAMILY HISTORY: Noncontributory. REVIEW OF SYSTEMS: Noncontributory. PHYSICAL EXAMINATION: The patient's general status appears consistent with an elderly woman with mild cognitive impairment. Vital signs are recorded in the chart as temperature of 37.5, pulse of 91, blood pressure 97/53, room air saturation 92%. Her sclerae are clear. Heart and lungs are unremarkable. Her abdomen is soft, nondistended. Mild discomfort to palpation in all four quadrants, but certainly no right upper quadrant tenderness and no right lower quadrant tenderness. LABORATORY DATA: Her admission white count was 19.2 with 89.9% bands, her hematocrit was 38, platelet count was 273. Chemistries show a mild elevation of her BUN and creatinine to 34/1.77. Initial glucose was 207. Initial lactate was 3.5 and is now down to 2.0. Total bilirubin was normal, but her AST and ALT are elevated at 264 and 176 and her alkaline phosphatase is mildly elevated at 39. Her lipase is 44. IMAGING: I reviewed the chest x-ray, brain CT, ultrasound of the abdomen and abdomen and pelvis CT scan, both reports and the images. I concur that she does have cholelithiasis, but no evidence of acute cholecystitis and no other significant abdominal pathology that shows up on either abdominal ultrasound or her abdominal CT. IMPRESSION/PLAN: An elderly woman who presented with a history of nausea and vomiting of under 24 hours. At this point, her primary objective abnormality is an elevated white count and transient lactic acidosis and mild elevation of her BUN and creatinine above baseline. Other significant laboratory abnormalities are the AST and the ALT that are roughly five times normal. I do not think she has acute cholecystitis, nor do I think she has some other brewing intraabdominal catastrophe, such as ischemic bowel or a bowel obstruction. I will follow her along with the Medicine Service and re-examine her in the morning. Hopefully, her white count and other labs will normalize simply with conservative measures. She has been placed on IV piperacillin and she has an equivocal urine. I will re-examine her first thing in the morning.
[2016-07-03] MEDS: Piperacillin-Tazo 3.375 Gm Inj 3.375 GM in Dextrose 5% Minibag Plus 50 ML IV SCH (23:31)
[2016-07-03] MEDS: Sodium Chloride LOK Flush 10 mL Syringe IVFLUSH SCH (23:32)
[2016-07-04] VITALS (8 sets, daily range): BP systolic 102–147; BP diastolic 58–78; PULSE 68–74; RESP 16–20; O2SAT 93–96
[2016-07-04] MEDS: 0.9% Sodium Chloride 1,000 ML IV SCH ×3 (02:33→14:45)
[2016-07-04 03:09] LABS: BASOPHILS % (AUTO) 0.2 % (0-3); EOSINOPHILS % (AUTO) 0.6 % (0-5); MONOCYTES % (AUTO) 7.2 % (4-12); Mean Corpuscular Hemoglobin 25.3 pg (27.0-35.0); Mean Corpuscular Volume 77.3 fL (81-100); NEUTROPHILS % (AUTO) 85.5 % (40-74); Platelet Count 193 bil/L (150-400)
--- NOTE | 2016-07-04 06:05 | NUR ---
Admit/Fluids/Lactic Pt arrived to [facility] via ED. Admit completed by admit nurse. Pt is alert to self but not place or time. Pt is wheelchair bound at baseline and has a right BKA. Pt will be started on NS at 150 and lactic ordered x2. VSS and Tele SR 60's to 70's
--- NOTE | 2016-07-04 07:49 | PROG NOTE ---
[address] [address] PROGRESS NOTE PATIENT: GLENN SIGALA : 1930 MR#: [id number] ADMIT: 07/03/2016 JOB ID: [id number] DATE: 07/04/2016 SUBJECTIVE: She remains afebrile, stable vital signs, and her last blood pressure was 102/58. She tells me that she is feeling fine. Reports no further nausea and vomiting, and none is recorded on the electronic medical record. PHYSICAL EXAMINATION: On examination, her abdomen is benign. LABORATORY DATA: Labs show that her white blood cell count is down to 12.7, hematocrit is 32 with hydration. Creatinine is somewhat improved at 1.67. Her LFTs remain mildly abnormal, with a bilirubin of 1.3, and a mild elevation of her transaminases and alkaline phosphatase in the same range as last night. IMPRESSION/PLAN: Symptomatically improved. The etiology of her nausea and vomiting remains unclear. I do not think that she has acute cholecystitis, but given her liver function test abnormalities, I will order a HIDA scan. I guess it is possible that she is passing intermittent common duct stones, and some consideration could be given to either GI consultation or MRCP. I will start by making her n.p.o. and ordering a HIDA scan.
[2016-07-04] MEDS: Piperacillin-Tazo 3.375 Gm Inj 3.375 GM in Dextrose 5% Minibag Plus 50 ML IV SCH (12:19)
[2016-07-04] MEDS: Sodium Chloride LOK Flush 10 mL Syringe IVFLUSH SCH ×2 (12:20→16:30)
--- NOTE | 2016-07-04 14:27 | NUR ---
Social Work: Initial Assessment D: Per EMR review, pt is an 86 year old female admitted for Sepsis. Pt is Medicare with [employer] Supplement; pt has no LTC insurance or VA benefits. PCP is SOFY Orozco. NOK is selvin Ricksr/JASE, . Advanced directives completed and on file. Readmit score is high, 6/8. SILVERING APPLICATOR met with patient and daughter at bedside to discuss discharge planning. Sw role explained and contact info provided. See initial assessment. Pt is a resident at [facility]. She is wheelchair bound at baseline but is able to self-transfer. [facility] assists that patient with medication management. Pt has a history with [facility] but is not currently open for services. Pt and daughter would like for the patient to return to [facility] once medically stable; pt's daughter lives in [place] and pt would require transport from [facility] or [facility]. SILVERING APPLICATOR informed pt and daughter that pt will require a bedside assessment prior and that if not completed prior to discharge. Pt and daughter are requesting SILVERING APPLICATOR assist with coordinating bedside assessment to avoid possible delay in discharge. t/c to Applications Consultant at [facility], Cassia. She confirms pt is a resident and has help for medication. They would need to complete a bedside assessment prior to the patient's return. She does not believe that they will have the ability to complete this assessment over the weekend and will not be able to see the patient today. SILVERING APPLICATOR informed her that this may result in a delay of discharge for the patient if she is able to go over the weekend. Clinicals faxed to [phone]. A: Pt who lives at [facility]. P: Evolving; Anticipate pt to discharge back to [facility] when medically stable pending bedside assessment and orders from . SILVERING APPLICATOR to continue to follow and assist with discharge planning. JOHN Sellers
--- NOTE | 2016-07-04 16:43 | DRSVH ---
PROCEDURE: NM HIDA SCAN WITH CCK PHARMACEUTICAL: 4.95 mCi Tc-99m mebrofenin IV; 1.7 mcg CCK IV. INDICATIONS: RULE OUT ACUTE CHOLECYSTITIS, LOOK FOR NON-VISUALIZATION OF GALL BLADDER. TECHNIQUE: Following intravenous administration of Tc-99m mebrofenin, sequential anterior abdominal images were obtained. To evaluate the contractile response of the gallbladder in response to Cholecystokinin (CC K), sincalide (0.02 g/kg) was administered by slow intravenous infusion approximately 60 minutes aft er the administration of the radiopharmaceutical. Sequential imaging was continued for [address] the start of CCK infusion. Gallbladder ejection fraction was calculated. COMPARISON: None. FINDINGS: Biliary scan: There is normal tracer uptake and excretion by the liver. There is normal visualizati on of the intrahepatic ducts, common bile duct, and gallbladder. There is normal tracer transit into the duodenum. CCK stimulation: There is good contractile response of the gallbladder to CCK infusion. The calcula kylee gallbladder ejection fraction is approximately 100% in this patient; normal values are above 35%. It has been shown that any patient abdominal pain after CCK administration is related to the rate of CCK injection, rather than to any underlying gallbladder disease (Clinical Nuclear Medicine 2012; 37: 63-70. Journal of Nuclear Medicine 2014; 55: 1-9). IMPRESSION: No evidence for an acute cholecystitis is seen. This HIDA scan is considered within eddie l limits. Dictated by: Ilan Lucia M.D. on 07/04/2016 at 16:38 Approved by: Ilan Lucia M.D. on 07/04/2016 at 16:42
--- NOTE | 2016-07-04 17:37 | NUR ---
Resp/Activity/MRI Patient a/o x self occasionally place, but forgetful. Patient c/o hunger, denies nausea or abd pain. Patient down for HIDA scan this a.m joleen well. VSS, tele SR. Patient oob with sba pivot transfer to [facility], joleen well. Abd soft, positive bowel tones, had BM x 2. Patient down for MRI this evening, but unable to lie flat r/t sob. Lungs course bilat and patient, MD notified.
--- NOTE | 2016-07-04 17:43 | PCM.PNMED ---
Subjective Date of Service July 04, 2016 Subjective Tiana Kinney is a 86-year-old woman with history of COPD and peripheral vascular disease related to tobacco abuse presents with acute onset nausea vomiting and sepsis. Hospital day #2. Overnight: No acute events. Today: Patient states that she is feeling better and is back to her normal self. She states that she still has some abdominal pain. She denies any fever , chills, vomiting, nausea. The remainder review of systems is negative except as noted above. Exam Vital Signs Vital Sign - Last Date Time Temp Pulse Resp B/P Pulse Ox O2 Delivery O2 Flow Rate FiO2 07/04/16 16:22 36.5 73 18 147/78 94 Room Air Intake and Output 07/03/16 07/03/16 07/04/16 Cumulative From/Thru 15:00 23:00 07:00 07/03/16 16:00 - 07/04/16 05:30 Intake Total 1900 ml 200 ml 2100 ml Output Total 100 ml 700 ml 800 ml Balance 1800 ml -500 ml 1300 ml Intake Oral 400 ml 200 ml 600 ml IV Total 1500 ml 1500 ml Output Urine Total 100 ml 700 ml 800 ml Exam Constitutional: Obese woman no acute distress; vital signs noted Eyes: Pupils 4 mm, sclerae anicteric, no conjunctival pallor, ENMT: ears, nose atraumatic; oral mucosa moist Neck: supple, JVD absent Chest: symmetric, no pain or lesions Resp: Coarse breath sounds, no wheezes, rales or dullness Cardiac: S1, S2, regular, no murmur Abdomen: bowel sounds present, tenderness to deep palpation of the right lower quadrant. Negative Mcintyre sign. Musculoskeletal: RLE BKA, left calf with erythema and atrophic skin Skin and soft tissues: no rash; trace pitting edema left lower extremity Peripheral pulses: Diminished in feet Lymphatic: no adenopathy cervical Neurological: Cranial Nerves - face symmetric Motor - 5/5 strength, normal tone Coordination - normal movement, no tremor Psych & Mental Status - oriented, makes jokes, mild cognitive deficits IVs and Medications Medications Reviewed: Medications were reviewed in detail Lab and Diagnostics Result Diagram: 07/04/1624407/04/16244 X-Rays, CTs and MRIs X-RAY CHEST ONE VIEW, PORTABLE IMPRESSION: Minimal unchanged costophrenic angle blunting, possibly related to scarring versus chronic effusions. Dictated by: Coretta Ji M.D. on 07/03/2016 at 16:25 CT BRAIN WITHOUT CONTRAST IMPRESSION: Severely motion degraded examination. Within this constraint, no gross acute intracranial process. Dictated by: Bulmaro Mayer M.D. on 07/03/2016 at 17:15 PROCEDURE: US ABDOMEN IMPRESSION: Cholelithiasis however no other sonographic criteria for acute cholecystitis. Please correlate clinically and with LFTs. Bilateral renal cysts. Atrophic left kidney. Dictated by: Bulmaro Mayer M.D. on 07/03/2016 at 17:05 PROCEDURE: CT ABDOMEN AND PELVIS WITHOUT CONTRAST IMPRESSION: Overall, no acute abnormality seen. Cholelithiasis Appendix not definitely visualized. Recommend clinical and laboratory correlation. Age-indeterminate T12 compression fracture. Incidental colonic diverticulosis. Dictated by: Bulmaro Mayer M.D. on 07/03/2016 at 17:11 . NM HIDA SCAN WITH CCK IMPRESSION: No evidence for an acute cholecystitis is seen. This HIDA scan is considered within normal limits. Dictated by: Ilan Lucia M.D. on 07/04/2016 at 16:38 12-lead ECG 07/03/16 15:22 sinus tachycardia 102 bpm, left axis deviation, LAD, old Q waves III, aVF, no acute ST-T wave changes. Assessment & Plan Tiana Kinney is a 86-year-old woman with history of COPD and peripheral vascular disease related to tobacco abuse presents with acute onset nausea vomiting and sepsis. Hospital day #2. Severe Sepsis, acute, present on admission. SIRS criteria on admission heart rate 105, respiratory rate 35, temperature 39.6, leukocytosis 19.2. Associated with hypoxia 90% on room air, and acute kidney injury creatinine 1.77. Lactic acidosis elevated 3.5. No hypotension. - Lactate normalized - Aggressive fluid resuscitation completed - Careful intake and output with Moya catheter to maintain urine output greater than 0.5 [id number] - Antibiotic therapy for gram-negative tomas bacteremia Abdominal inflammatory process, acute, present on admission. Presenting symptoms are nausea and vomiting. Associated laboratory findings include elevated transaminases. She gives history of intermittent right lower quadrant pain, although not significantly increased at present. There is no diarrhea. Abdominal imaging reveals choleithiasis but no gallbladder inflammation or other hepatic abnormalities. CT imaging limited to noncontrast study but reveals no obvious intra-abdominal abscess. Chest x-ray and urinalysis are unremarkable. Differential diagnosis is diverticular abscess, viral gastroenteritis, bowel ischemia, basilar pneumonia. Blood cultures pending. - Broad-spectrum antibiotic coverage Zosyn for gram-negative rods, anaerobes and enterococcal infection. - MRCP when patient is able to lay flat. For this reason her fluids were reduced to 60 mL per hour. Acute kidney injury, present on admission. - Follow BMP with hydration - Plan to revise antibiotics as soon as possible COPD, chronic. No evidence of acute respiratory process - Bronchodilator when necessary Hyperglycemia, acute. - Monitor blood glucose - Insulin correctional scale; revised to basal bolus if she is persistently hyperglycemic History of thromboembolic disease, chronic. - Pharmacy to manage warfarin Peripheral vascular disease, chronic. VTE Prophylaxis: Other VTE Mechanical Devices: Intermittant Pneumatic CD Resuscitation Status: DNR/DNI:Do Not Resuscitate/Intubate Time spent 45 minutes Attending Statement I interviewed and examined the patient on rounds today. I agree with the assessment and plan as stated above. Carmen Boateng DO July 04, 2016 16:53 Nicholas Watson MD July 04, 2016 17:48
--- NOTE | 2016-07-04 18:20 | NUR ---
spiritual care: pt request conversational visit. pt engaged with leading questions and included her coping with loss of leg. Pt was concerned about being accused of losing her wheelchair. She acknowledged challenges related to word/memory loss. pleasant. pt agreeable to have a caring occupational ther visit--Norma spent about 30 minutes with pt and reports pleasant redirectable conversatoin.
[2016-07-04 18:47] LABS: INR 2.08 ratio
--- NOTE | 2016-07-04 19:39 | PCM.CONPHA ---
Subjective Date of Service: July 04, 2016 86-year-old woman with history of peripheral vascular disease presents with acute nausea vomiting and sepsis Reason for Pharmacy Consult: Anticoagulation Management Objective Vital Signs Date Time Temp Pulse Resp B/P Pulse Ox O2 Delivery O2 Flow Rate FiO2 07/04/16 16:22 36.5 73 18 147/78 94 Room Air 07/04/16 11:53 36.4 70 18 133/74 96 Room Air 07/04/16 08:20 69 07/04/16 08:15 36.6 69 20 107/66 94 Room Air 07/04/16 08:00 68 07/04/16 05:30 68 07/04/16 03:59 36.7 71 18 102/58 94 Room Air 07/03/16 23:16 36.5 77 20 103/63 93 Room Air 07/03/16 20:21 87 16 93 Room Air 07/03/16 19:38 37.5 91 20 97/53 92 Room Air Intake and Output 07/02/16 07/03/16 07/04/16 00:00 00:00 00:00 Intake Total 1900 ml Output Total 100 ml Balance 1800 ml Weight (Kilograms): 84.600 Height (Feet): 5 Height (Inches): 3.00 Test 07/03/16 14:50 07/03/16 15:14 07/03/16 22:35 07/04/16 02:45 Magnesium Level 1.8mg/dL (1.6-2.6) Troponin T 0.010ug/L (0.0-0.011) Lipase 44U/L (13-60) Urine Color Straw (YELLOW) Urine Appearance Hazy (CLEAR,HAZY) Urine pH 6.0 (5.0-8.0) Urine Specific False Pass 1.010 (1.003-1.035) Urine Protein Negativemg/dL (NEG,TRACE) Urine Glucose (UA) Negativemg/dL (NEGATIVE) Urine Ketones Negativemg/dL (NEGATIVE) Urine Occult Blood Negative (NEGATIVE) Urine Nitrite Negative (NEGATIVE) Urine Bilirubin Negative (NEGATIVE) Urine Urobilinogen Normalmg/dL (NORMAL) Urine Leukocyte Esterase Negative (NEGATIVE) Urine RBC 0-2/hpf (0-2) Urine WBC 0-5/hpf (0-5) Urine Epithelial Cells Occasional/hpf (NONE-MOD) Urine Crystals None seen (NONE SEEN) Urine Bacteria Moderate/hpf (NONE-FEW) Urine Hyaline Casts None/lpf (NONE) Urine Granular Casts None seen (NONE SEEN) Urine Waxy Casts None seen (NONE SEEN) Urine Red Blood Cell Casts None seen (NONE SEEN) Urine White Blood Cell Casts None seen (NONE SEEN) Urine Mucus None seen (None Seen) Urine Trichomonas None seen (NONE SEEN) Urine Yeast None (NONE SEEN) Urinalysis Comment None Urine Culture Reflexed Indicated Lactic Acid Level 1.7mmol/L (0.4-2.0) White Blood Count 12.7th/mm3 (3.8-10.1) Red Blood Count 4.15mil/mm3 (3.90-5.20) Hemoglobin 10.5g/dL (12.0-15.6) Hematocrit 32.1% (35.0-46.0) Mean Corpuscular Volume 77.3fL (81-100) Mean Corpuscular Hemoglobin 25.3pg (27.0-35.0) Mean Corpuscular Hemoglobin Concent 32.7% (32.0-37.0) Red Cell Distribution Width 17.6% (12.3-15.4) Platelet Count 193bil/L (150-400) Neutrophils (%) (Auto) 85.5% (40-74) Lymphocytes (%) (Auto) 6.3% (14-46) Monocytes (%) (Auto) 7.2% (4-12) Eosinophils (%) (Auto) 0.6% (0-5) Basophils (%) (Auto) 0.2% (0-3) Sodium Level 141mEq/L (134-144) Potassium Level 4.4mEq/L (3.5-5.2) Chloride Level 105mEq/L (97-108) Carbon Dioxide Level 22mmol/L (18-29) Blood Urea Nitrogen 29mg/dL (8-27) Creatinine 1.67mg/dL (0.57-1.00) Estimat Glomerular Filtration Rate 42mL/min (>59) Glucose Level 168mg/dL (60-99) Calcium Level 8.0mg/dL (8.5-10.1) Total Bilirubin 1.3mg/dL (0.0-1.2) Aspartate Amino Transf (AST/SGOT) 199U/L (0-50) Alanine Aminotransferase (ALT/SGPT) 214U/L (0-32) Alkaline Phosphatase 187U/L (25-165) Total Protein 6.5g/dL (6.4-8.4) Albumin 2.8g/dL (3.4-5.0) Test 07/04/16 18:20 Prothrombin Time 22.6sec (8.1-12.5) Prothromb Time International Ratio 2.08ratio Assessment/Plan Assessment/Plan WARFARIN MANAGEMENT A\ 86YO F admitted for sepsis with a history of DVT and PE Home dose of Warfarin 3mg Mo,Th 2mg Latif,Tu,We,Fr,Sa Current INR=2.08 HCT=32.1 down from 38.3 and TDD=994, Elevated liver enzymes No bleeding reported by VAMSHI Forrester can increase possibility of bleeding while on warfarin. P\ Will continue home dose Warfarin 2mg PO x1 tonight and check an INR in the AM. Pharmacy will continue to monitor and adjust warfarin daily as needed. Carl Smith [facility] July 04, 2016 19:38
[2016-07-05] VITALS (11 sets, daily range): BP systolic 122–164; BP diastolic 66–95; PULSE 61–89; RESP 16–24; O2SAT 92–95
[2016-07-05] MEDS: Piperacillin-Tazo 3.375 Gm Inj 3.375 GM in Dextrose 5% Minibag Plus 50 ML IV SCH ×3 (00:04→19:37)
[2016-07-05] MEDS: Sodium Chloride LOK Flush 10 mL Syringe IVFLUSH SCH ×3 (00:04→16:53)
[2016-07-05] MEDS: 0.9% Sodium Chloride 1,000 ML IV SCH (00:04)
[2016-07-05 03:24] LABS: INR 1.97 ratio
--- NOTE | 2016-07-05 06:00 | NUR ---
Rest/Mentation Pt was able to sleep through most of the shift. Pt is alert to self and at times is aware of place. Pt has to be reoriented at times to where she is and why she is here at the hospital.
--- NOTE | 2016-07-05 07:20 | PCM.PHAPRO ---
Progress Date of Service: July 05, 2016 Warfarin dosing -July 04-July 05-June 2.34 2.08 1.97 -0.26 -0.11 2 2 A/ INR is very slightly subtherapeutic at 1.97. P/ Continue with home dose of 2mg warfarin today and re-evaluate tomorrow with AM labs. Sherman Stone July 05, 2016 07:20
[2016-07-05 08:41] LABS: Mean Corpuscular Hemoglobin 24.8 pg (27.0-35.0); Mean Corpuscular Volume 80.3 fL (81-100)
--- NOTE | 2016-07-05 09:18 | NUR ---
JOE signed. Tosha Arechiga [employer]
--- NOTE | 2016-07-05 09:40 | NUR ---
Evaluation completed. Please go to "Notes" then click on "Assessments and Notes" (bottom left corner of screen). Then select appropriate discipline tab on top of screen.
--- NOTE | 2016-07-05 09:53 | PROG NOTE ---
[address] [address] PROGRESS NOTE PATIENT: GLENN SIGALA : 1930 MR#: [id number] ADMIT: 07/03/2016 JOB ID: [id number] DATE: 07/05/2016 SUBJECTIVE: The patient is seen in followup for surgery for concern for cholecystitis. Yesterday, the patient underwent a HIDA scan which demonstrated filling of the gallbladder with no evidence for acute cholecystitis. She has remained afebrile and essentially hemodynamically normal. Her white blood cell count is normal at 9 today. She denies any abdominal pain, other than some tenderness from where she says the doctors keep pushing on her. Her abdomen is soft, not significantly tender and not distended. ASSESSMENT AND PLAN: This is an 86-year-old female, for whom there was some concern for cholecystitis. HIDA scan is very sensitive and specific and was negative. Furthermore her history, examination and other diagnostics do not support the diagnosis. At this point, General Surgery can sign off.
--- NOTE | 2016-07-05 10:12 | NUR ---
Social Work: Readiness for Discharge D: Per EMR review, pt is on day 2 of hospitalization for Sepsis. Pt is not medically stable at this time, pt is working to have her diet advanced. Surgery has signed off. MIGUELITO placed call to [facility] regarding bedside assessment. MIGUELITO requested that assessment be completed today so as not to delay pt's discharge. SW awaiting return call confirming pt's bedside assessment. Pt will likely need transportation to [place], SW will continue to follow. A: Pt who lives at [facility]. P: Anticipate pt to discharge back to [place] when medically stable pending bedside assessment and orders from . Pt will likely need transportation to [place], SW will continue to follow and assist with discharge planning. JOHN Kaplan Addendum: 07/05/16 at 1044 by ZHENG ZARATE SS T/C to Teressa at [place] [phone], pt will likely not need a bedside assessment as pt is back to her baseline per pt's daughter. [place] will have an admit nurse available tomorrow to accept pt. MIGUELITO will continue to follow for discharge orders and transportation needs. JOHN Kaplan
--- NOTE | 2016-07-05 12:07 | PCM.PNMED ---
Subjective Date of Service July 05, 2016 Subjective Tiana Kinney is a 86-year-old woman with history of COPD and peripheral vascular disease related to tobacco abuse presents with acute onset nausea vomiting and sepsis. Hospital day #3. Overnight: No acute events. Today: Patient states that she is feeling better and is back to her normal self. She states that she still has some abdominal pain in the right lower quadrant area. She denies any fever, chills, vomiting, nausea. Exam Vital Signs Vital Sign - Last Date Time Temp Pulse Resp B/P Pulse Ox O2 Delivery O2 Flow Rate FiO2 07/05/16 10:21 89 07/05/16 08:16 36.8 16 160/95 93 Room Air Intake and Output 07/04/16 07/04/16 07/05/16 Cumulative From/Thru 14:59 22:59 06:59 07/03/16 16:00 - 07/05/16 05:59 Intake Total 756 ml 0 ml 2856 ml Output Total 700 ml 600 ml 2100 ml Balance 56 ml -600 ml 756 ml Intake Oral 0 ml 0 ml 600 ml IV Total 756 ml 2256 ml Output Urine Total 700 ml 600 ml 2100 ml # Bowel Movements 2 0 2 Exam General: Elderly, obese woman in no acute distress HEENT: sclerae anicteric, oral mucosa moist Neck: no JVD Chest: Generally clear to auscultation Cardiac: S1S2, no murmur Abdomen: BS normal, tender to deep palpation of right lower and lower mid quadrant; no guarding or rebound Extremities: Stasis dermatitis left leg; stable right BKA Neuro: A&O, cranial nerves symmetric, motor strength 5-/5, coordination normal, limited ambulation usually in wheelchair IVs and Medications Medications Reviewed: Medications were reviewed in detail Lab and Diagnostics Blood cultures 07/03 2 sets gram-negative rods Urinalysis on admission unremarkable Result Diagram: 07/05/16 0830 07/05/16 0830 X-Rays, CTs and MRIs X-RAY CHEST ONE VIEW, PORTABLE IMPRESSION: Minimal unchanged costophrenic angle blunting, possibly related to scarring versus chronic effusions. Dictated by: Coretta Ji M.D. on 07/03/2016 at 16:25 CT BRAIN WITHOUT CONTRAST IMPRESSION: Severely motion degraded examination. Within this constraint, no gross acute intracranial process. Dictated by: Bulmaro Mayer M.D. on 07/03/2016 at 17:15 PROCEDURE: US ABDOMEN IMPRESSION: Cholelithiasis however no other sonographic criteria for acute cholecystitis. Please correlate clinically and with LFTs. Bilateral renal cysts. Atrophic left kidney. Dictated by: Bulmaro Mayer M.D. on 07/03/2016 at 17:05 PROCEDURE: CT ABDOMEN AND PELVIS WITHOUT CONTRAST IMPRESSION: Overall, no acute abnormality seen. Cholelithiasis Appendix not definitely visualized. Recommend clinical and laboratory correlation. Age-indeterminate T12 compression fracture. Incidental colonic diverticulosis. Dictated by: Bulmaro Mayer M.D. on 07/03/2016 at 17:11 . NM HIDA SCAN WITH CCK IMPRESSION: No evidence for an acute cholecystitis is seen. This HIDA scan is considered within normal limits. Dictated by: Ilan Lucia M.D. on 07/04/2016 at 16:38 12-lead ECG 07/03/16 15:22 sinus tachycardia 102 bpm, left axis deviation, LAD, old Q waves III, aVF, no acute ST-T wave changes. Assessment & Plan Tiana Kinney is a 86-year-old woman with history of COPD and peripheral vascular disease related to tobacco abuse presents with acute onset nausea vomiting and sepsis and gram-negative bacteremia. Hospital day #2. Severe Sepsis, acute, present on admission. SIRS criteria on admission heart rate 105, respiratory rate 35, temperature 39.6, leukocytosis 19.2. Associated with hypoxia 90% on room air, and acute kidney injury creatinine 1.77. Lactic acidosis elevated 3.5. No hypotension. Clinically improved within 12 hours. - Lactate normalized - Aggressive fluid resuscitation completed - Continue Antibiotic therapy for gram-negative tomas bacteremia - Discontinue Omya Abdominal inflammatory process, acute, present on admission. Presenting symptoms are nausea and vomiting. Associated laboratory findings include elevated transaminases. She gives history of intermittent right lower quadrant pain, although not significantly increased at present. There is no diarrhea. Abdominal imaging reveals choleithiasis but no gallbladder inflammation or other hepatic abnormalities. CT imaging limited to noncontrast study but reveals no obvious intra-abdominal abscess. Chest x-ray and urinalysis are unremarkable. Differential diagnosis is diverticular abscess, viral gastroenteritis, bowel ischemia, basilar pneumonia. Blood cultures pending. - Broad-spectrum antibiotic coverage Zosyn for gram-negative rods, anaerobes and enterococcal infection. - Revise antibiotics when sensitivities available Acute kidney injury, present on admission. Serum creatinine 1.77 on admission. Now declined to 1.49. - Follow BMP with hydration - Plan to revise antibiotics as soon as possible Hypertension, chronic. Diuretic antihypertensives have been held due to sepsis. Patient is now hypertensive. - Initiate amlodipine 5 mg daily - Discontinue IV fluids COPD, chronic. No evidence of acute respiratory process - Bronchodilator when necessary Hyperglycemia, acute. Glucoses have been at inpatient target. - Monitor blood glucose - Insulin correctional scale; - Check hemoglobin A1c History of thromboembolic disease, chronic. - Pharmacy to manage warfarin Peripheral vascular disease, chronic. Pain Evaluation: Adequate Pain Control VTE Prophylaxis: Other VTE Mechanical Devices: Intermittant Pneumatic CD Resuscitation Status: DNR/DNI:Do Not Resuscitate/Intubate Time spent 35 minutes Nicholas Watson MD July 05, 2016 12:07
--- NOTE | 2016-07-05 13:58 | NUR ---
Evaluation completed. Please go to "Notes" then click on "Assessments and Notes" (bottom left corner of screen). Then select appropriate discipline tab on top of screen.
--- NOTE | 2016-07-05 14:06 | NUR ---
NUTRITION ASSESSMENT: ASSESS:86 YO female admitted with severe sepsis, bacteremia, inflammatory abdominal process. Differential includes diverticular abscess, viral gastroenteritis, bowel ischemia, basilar pneumonia. Blood cultures pending. Diet advanced to dysphagia mechanical, thin liquids, per Speech Therapy, but downgraded to NPO status per surgery yesterday. PO intake not yet recorded. Code status: DNR / DNI. PMHx:COPD, PVD, smoking. DIET:NPO. LABS: Reviewed. Cr 1.49, Glu 100, Ca 8.4, AST 91, ALT 157, Alb 3.0. MEDICATIONS: Reviewed. Coumadin. NUTRITION FOCUSED PHYSICAL ASSESSMENT: GI symptoms / stool: BM x 2 (07/02).Clarence: 14. Skin Integrity: No issues reported. ANTHROPOMETRICS: Current Wt: 85.6 kgBMI: 33.0 kg/m2.Admit weight: 85.3 kg IBW: 52.3 kg (163.2% IBW) ESTIMATED NEEDS (CLASS I OBESITY): Calories: 1159 - 1307 kcal (22 - 25 kcal / kg IBW) Protein: 94 - 105 g protein (1.8 - 2.0 g / kg IBW) Fluid: Approx. 2133 mL (25 mL / kg BW) NUTRITION DIAGNOSIS: 1)Chewing / swallowing difficulties related to mild dysphagia, as evidenced by requirement for modified diet texture, per ST order. 2)Inadequate oral intake related to inflammatory abdominal process, etiology unknown, as evidenced by NPO status. INTERVENTION: 1) In the event diet unable to be advanced over weekend, recommend consideration of nutrition support. MONITOR/EVALUATE: Diet advance / tolerance, PO intake, labs, GI/nutrition status. Follow up per high nutrition risk guidelines.
[2016-07-05] MEDS: Albuterol-Ipratropium 3 mL Inhalation Solution NEB PRN (14:14)
--- NOTE | 2016-07-05 16:13 | NUR ---
Nuero/Activity/Moya Patient a/o to self, very forgetful and confused, having visual hallucinations this shift. Patient denies pain or nausea, but has sob with activity. Lungs decreased with exp wheezes bilat. Patient oob and up in wheelchair for 6 hrs, joleen well. Patient able to get around in room indep and pivot transfer indep with assist of tubes and lines. Abd soft, positive bowel tones, passing flatus, no BM this shift. Patient taking diet fair. Moya cath d/c'd at 1200 and patient able to void x 1. See vitals, home meds restarted.
[2016-07-06] MEDS: Sodium Chloride LOK Flush 10 mL Syringe IVFLUSH SCH ×3 (02:39→16:58)
[2016-07-06 03:07] LABS: INR 1.71 ratio
--- NOTE | 2016-07-06 03:29 | NUR ---
Pain/Mentation/Rest Pt denies pain when asked. Pt has had visual hallucinations during the shift. Pt continues to be very forgetful and disoriented. Pt is reoriented to place and situation frequently. Pt was able to get adequate rest during the shift.
--- NOTE | 2016-07-06 07:06 | PCM.PHAPRO ---
Progress Date of Service: July 06, 2016 Warfarin dosing Date July 04-July 05-July 06-June INR 2.34 2.08 1.97 1.71 INR change -0.26 -0.11 -0.26 Warf Dose 2 2 3 A/ INR is subtherapeutic and has fallen from yesterday. P/ Increase dose today to 3mg warfarin, reevaluate with AM labs tomorrow. Sherman Stone July 06, 2016 07:06
[2016-07-06 07:35] VITALS: BP 158/69; PULSE 69; RESP 20; O2SAT 95
[2016-07-06] MEDS: Piperacillin-Tazo 3.375 Gm Inj 3.375 GM in Dextrose 5% Minibag Plus 50 ML IV SCH ×2 (08:25→20:09)
[2016-07-06 11:16] VITALS: BP 133/73; PULSE 70; RESP 18; O2SAT 94
[2016-07-06] MEDS: Albuterol-Ipratropium 3 mL Inhalation Solution NEB PRN (12:33)
[2016-07-06 12:34] VITALS: PULSE 88; RESP 16; O2SAT 93
--- NOTE | 2016-07-06 16:07 | NUR ---
Pain/Activity/Resp Patient a/o x self, forgetful at times, needs reorientation freq to place and situation. Patient oob to wheelchair and bsc several times this shift, but c/o sob with exertion, lungs course with end exp wheezes, moist cough. Neb tx given per RTC. Patient taking diet fair, but c/o right side abd pain, declines pain meds. Hypoactive bowel tones, no BM x 2 days will offer Senna or prune juice. VSS, no tele.
--- NOTE | 2016-07-06 16:51 | PCM.PNMED ---
Subjective Date of Service July 06, 2016 Subjective Tiana Kinney is a 86-year-old woman with history of COPD and peripheral vascular disease related to tobacco abuse presents with acute onset nausea vomiting and sepsis. Hospital day # 4. Patient states that she is feeling better and is back to her normal self, it seems to underreport symptoms. She states that she still has some abdominal pain in the right lower quadrant area. She denies any fever, chills, vomiting, nausea. Exam Vital Signs Vital Sign - Last Date Time Temp Pulse Resp B/P Pulse Ox O2 Delivery O2 Flow Rate FiO2 07/06/16 12:34 88 16 93 Room Air 07/06/16 11:16 37.0 133/73 Intake and Output 07/05/16 07/05/16 07/06/16 Cumulative From/Thru 15:00 23:00 07:00 07/03/16 16:00 - 07/06/16 06:51 Intake Total 711 ml 1014 ml 200 ml 4781 ml Output Total 1325 ml 725 ml 4150 ml Balance 711 ml -311 ml -525 ml 631 ml Intake Oral 325 ml 100 ml 1025 ml IV Total 711 ml 689 ml 100 ml 3756 ml Output Urine Total 1325 ml 725 ml 4150 ml # Bowel Movements 0 2 Exam General: Elderly, obese woman in no acute distress HEENT: sclerae anicteric, oral mucosa moist Neck: no JVD Chest: Generally clear to auscultation, trace wheeze Cardiac: S1S2, no murmur Abdomen: BS normal, tender to deep palpation of right lower and lower mid quadrant; no guarding or rebound Extremities: Stasis dermatitis left leg; stable right BKA Neuro: A&O, cranial nerves symmetric, motor strength 5-/5, coordination normal, self transfers to wheelchair Lab and Diagnostics Result Diagram: 07/05/16 0830 07/05/16 0830 X-Rays, CTs and MRIs X-RAY CHEST ONE VIEW, PORTABLE IMPRESSION: Minimal unchanged costophrenic angle blunting, possibly related to scarring versus chronic effusions. Dictated by: Coretta Ji M.D. on 07/03/2016 at 16:25 CT BRAIN WITHOUT CONTRAST IMPRESSION: Severely motion degraded examination. Within this constraint, no gross acute intracranial process. Dictated by: Bulmaro Mayer M.D. on 07/03/2016 at 17:15 PROCEDURE: US ABDOMEN IMPRESSION: Cholelithiasis however no other sonographic criteria for acute cholecystitis. Please correlate clinically and with LFTs. Bilateral renal cysts. Atrophic left kidney. Dictated by: Bulmaro Mayer M.D. on 07/03/2016 at 17:05 PROCEDURE: CT ABDOMEN AND PELVIS WITHOUT CONTRAST IMPRESSION: Overall, no acute abnormality seen. Cholelithiasis Appendix not definitely visualized. Recommend clinical and laboratory correlation. Age-indeterminate T12 compression fracture. Incidental colonic diverticulosis. Dictated by: Bulmaro Mayer M.D. on 07/03/2016 at 17:11 . NM HIDA SCAN WITH CCK IMPRESSION: No evidence for an acute cholecystitis is seen. This HIDA scan is considered within normal limits. Dictated by: Ilan Lucia M.D. on 07/04/2016 at 16:38 12-lead ECG 07/03/16 15:22 sinus tachycardia 102 bpm, left axis deviation, LAD, old Q waves III, aVF, no acute ST-T wave changes. Assessment & Plan Tiana Kinney is a 86-year-old woman with history of COPD and peripheral vascular disease related to tobacco abuse presents with acute onset nausea vomiting and sepsis and gram-negative bacteremia. Hospital day # 3. # Severe Sepsis, acute, present on admission. SIRS criteria on admission heart rate 105, respiratory rate 35, temperature 39.6, leukocytosis 19.2. Associated with hypoxia 90% on room air, and acute kidney injury creatinine 1.77. Lactic acidosis elevated 3.5. No hypotension. Clinically improved within 12 hours. Lactate normalized. - Resolved, Aggressive fluid resuscitation completed - Continue Antibiotic therapy for gram-negative tomas bacteremia # Abdominal inflammatory process, acute, present on admission. Presenting symptoms are nausea and vomiting. Associated laboratory findings include elevated transaminases. She gives history of intermittent right lower quadrant pain, although not significantly increased at present. There is no diarrhea. Abdominal imaging reveals choleithiasis but no gallbladder inflammation or other hepatic abnormalities. CT imaging limited to noncontrast study but reveals no obvious intra-abdominal abscess. Chest x-ray and urinalysis are unremarkable. Diagnosis is gram-negative bacteremia due to presumed colonic diverticular disease. Blood cultures were positive from 525 but still no ID and sensitivity. - Broad-spectrum antibiotic coverage Zosyn for gram-negative rods, anaerobes and enterococcal infection. - Revise antibiotics when sensitivities available - Plan to discharge when microbiology data is available for outpatient antibiotic therapy # Acute kidney injury, present on admission. Serum creatinine 1.77 on admission. Now declined to 1.49. - Follow BMP with hydration - Plan to revise antibiotics as soon as possible # Hypertension, chronic. Diuretic antihypertensives have been held due to sepsis. Patient is now hypertensive. - Initiate amlodipine 5 mg daily - Discontinue IV fluids # COPD, chronic. No evidence of acute respiratory process - Bronchodilator when necessary # Type II diabetes mellitus with Hyperglycemia, acute. Glucoses have been at inpatient target. No prior diabetic therapy. She seems appropriate candidate for globin A1c target 7-8 percent. Recommend diet therapy and follow-up with PCP. - Monitor blood glucose - Insulin correctional scale while inpatient - Inpatient diabetes education if possible # History of thromboembolic disease, chronic. - Pharmacy to manage warfarin # Peripheral vascular disease, chronic. VTE Prophylaxis: Other VTE Mechanical Devices: Intermittant Pneumatic CD Resuscitation Status: DNR/DNI:Do Not Resuscitate/Intubate Time spent 35 minutes Nicholas Watson MD July 06, 2016 16:51
[2016-07-06 19:47] VITALS: BP 140/69; PULSE 72; RESP 20; O2SAT 95
[2016-07-06 20:20] VITALS: PULSE 78; RESP 16; O2SAT 95
[2016-07-07] VITALS (7 sets, daily range): BP systolic 125–167; BP diastolic 55–88; PULSE 63–72; RESP 16–20; O2SAT 95–99
[2016-07-07] MEDS: Sodium Chloride LOK Flush 10 mL Syringe IVFLUSH SCH ×4 (00:30→21:04)
--- NOTE | 2016-07-07 03:07 | NUR ---
Mentation Pt alert to self. When asked about her location, pt paused and took a few moments and answered correctly. At 0000, pt calling out without using call sanchez. Only orientated to self, argumentative and distrustful. Pt reorientated, and settled back to bed.
[2016-07-07 04:00] LABS: INR 1.76 ratio
--- NOTE | 2016-07-07 06:49 | PCM.PHAPRO ---
Progress Warfarin dosing Date July 04-July 05-July 06-July 07-June INR 2.34 2.08 1.97 1.71 1.76 INR change -0.26 -0.11 -0.26 0.05 Warf Dose 2 2 3 3 Benjamin Shah Pharm.D July 07, 2016 06:49
[2016-07-07] MEDS: Piperacillin-Tazo 3.375 Gm Inj 3.375 GM in Dextrose 5% Minibag Plus 50 ML IV SCH (09:15)
--- NOTE | 2016-07-07 13:16 | PCM.PNMED ---
Subjective Date of Service July 07, 2016 Subjective She feels better today. No nausea, abdominal pain, diarrhea. No chest pain, cough or shortness of breath. Her energy level is better. No fevers or chills. No overnight events. Exam Vital Signs Vital Sign - Last Date Time Temp Pulse Resp B/P Pulse Ox O2 Delivery O2 Flow Rate FiO2 07/07/16 08:30 36.7 67 20 148/72 95 Room Air Intake and Output 07/06/16 07/06/16 07/07/16 Cumulative From/Thru 15:00 23:00 07:00 07/03/16 16:00 - 07/07/16 06:12 Intake Total 1140 ml 300 ml 6221 ml Output Total 1100 ml 750 ml 6000 ml Balance 40 ml -450 ml 221 ml Intake Oral 1060 ml 300 ml 2385 ml IV Total 80 ml 3836 ml Output Urine Total 1100 ml 750 ml 6000 ml # Voids 2 2 # Bowel Movements 1 3 Exam Alert and oriented -3, no distress. Fluent speech Anicteric sclera. Lungs are clear with normal rate and effort Heart is regular without murmur gallop or rub Abdomen soft nontender, flat Extremities are free of edema. Skin is free of rash or lesions. IVs and Medications Medications Reviewed: Medications were reviewed in detail Lab and Diagnostics Result Diagram: 07/05/1682907/05/16829 X-Rays, CTs and MRIs X-RAY CHEST ONE VIEW, PORTABLE IMPRESSION: Minimal unchanged costophrenic angle blunting, possibly related to scarring versus chronic effusions. Dictated by: Coretta Ji M.D. on 07/03/2016 at 16:25 CT BRAIN WITHOUT CONTRAST IMPRESSION: Severely motion degraded examination. Within this constraint, no gross acute intracranial process. Dictated by: Bulmaro Mayer M.D. on 07/03/2016 at 17:15 PROCEDURE: US ABDOMEN IMPRESSION: Cholelithiasis however no other sonographic criteria for acute cholecystitis. Please correlate clinically and with LFTs. Bilateral renal cysts. Atrophic left kidney. Dictated by: Bulmaro Mayer M.D. on 07/03/2016 at 17:05 PROCEDURE: CT ABDOMEN AND PELVIS WITHOUT CONTRAST IMPRESSION: Overall, no acute abnormality seen. Cholelithiasis Appendix not definitely visualized. Recommend clinical and laboratory correlation. Age-indeterminate T12 compression fracture. Incidental colonic diverticulosis. Dictated by: Bulmaro Mayer M.D. on 07/03/2016 at 17:11 . NM HIDA SCAN WITH CCK IMPRESSION: No evidence for an acute cholecystitis is seen. This HIDA scan is considered within normal limits. Dictated by: Ilan Lucia M.D. on 07/04/2016 at 16:38 12-lead ECG 07/03/16 15:22 sinus tachycardia 102 bpm, left axis deviation, LAD, old Q waves III, aVF, no acute ST-T wave changes. Assessment & Plan Tiana Kinney is a 86-year-old woman with history of COPD and peripheral vascular disease related to tobacco abuse presents with acute onset nausea vomiting and sepsis and gram-negative bacteremia. Hospital day # 3. # Severe Sepsis, acute, present on admission. Improving. SIRS criteria on admission heart rate 105, respiratory rate 35, temperature 39.6, leukocytosis 19.2. Associated with hypoxia 90% on room air, and acute kidney injury creatinine 1.77. Lactic acidosis elevated 3.5. No hypotension. Clinically improved within 12 hours. Lactate normalized. - Resolved, Aggressive fluid resuscitation completed - Continue Antibiotic therapy for gram-negative tomas bacteremia, await sensitivities. # Abdominal inflammatory process, acute, present on admission. Improving. Presenting symptoms are nausea and vomiting. Associated laboratory findings include elevated transaminases. She gives history of intermittent right lower quadrant pain, although not significantly increased at present. There is no diarrhea. Abdominal imaging reveals choleithiasis but no gallbladder inflammation or other hepatic abnormalities. CT imaging limited to noncontrast study but reveals no obvious intra-abdominal abscess. Chest x-ray and urinalysis are unremarkable. Diagnosis is gram-negative bacteremia due to presumed colonic diverticular disease. Blood cultures were positive from 525 but still no ID and sensitivity. - Broad-spectrum antibiotic coverage Zosyn for gram-negative rods, anaerobes and enterococcal infection. - Revise antibiotics when sensitivities available - Plan to discharge when microbiology data is available for outpatient antibiotic therapy Suspect that this may relate to a pyelonephritis. # Acute kidney injury, present on admission. Serum creatinine 1.77 on admission. Now declined to 1.49. Improving. - Follow BMP with hydration - Plan to revise antibiotics as soon as possible # Hypertension, chronic. Diuretic antihypertensives have been held due to sepsis. Patient is now hypertensive. - Initiate amlodipine 5 mg daily - Discontinue IV fluids, this is stable. # COPD, chronic. No evidence of acute respiratory process - Bronchodilator when necessary # Type II diabetes mellitus with Hyperglycemia, acute. This is stable, good control. Glucoses have been at inpatient target. No prior diabetic therapy. She seems appropriate candidate for globin A1c target 7-8 percent. Recommend diet therapy and follow-up with PCP. - Monitor blood glucose - Insulin correctional scale while inpatient - Inpatient diabetes education if possible # History of thromboembolic disease, chronic. - Pharmacy to manage warfarin # Peripheral vascular disease, chronic. VTE Prophylaxis: Other VTE Mechanical Devices: Intermittant Pneumatic CD Resuscitation Status: DNR/DNI:Do Not Resuscitate/Intubate Justin Holden MD July 07, 2016 13:16
--- NOTE | 2016-07-07 14:03 | NUR ---
P: Change in mental status I: Pt alert but remains forgetful and a little confused. Very cooperative and laughing. Room air sats 95%. Taking dysphagia diet and thin fluids well. No tele but pulse 60's. Up in wheelchair with one assist. Up to BSC with one assist. Denies any pain. Saline lock x2 patent. Daughter at bedside and updated on pt's condition and plan of care by . NS TKO for IV antibiotics. Pt pivots to get from bed to bedside commode and to pt's own wheelchair. E: Stable and improving S: Frequent rounding. Up with assist only.
[2016-07-07] MEDS: cefTRIAXone Inj 1,000 MG in Dextrose 5% Minibag Plus 50 ML IV SCH (14:40)
[2016-07-08 03:47] LABS: INR 1.92 ratio
--- NOTE | 2016-07-08 07:06 | NUR ---
Mentation Pt remains confused. VSS. Pivot transfer from bed to BSC well. No overt complications noted.
[2016-07-08 07:35] VITALS: PULSE 60; RESP 16; O2SAT 95
[2016-07-08 07:47] VITALS: BP 156/66; PULSE 61; RESP 16; O2SAT 96
[2016-07-08] MEDS: Sodium Chloride LOK Flush 10 mL Syringe IVFLUSH SCH (07:58)
[2016-07-08] MEDS ORDERED: Glucose 40% Oral Gel 15 Gm Tube PO PRN (09:25)
[2016-07-08] MEDS ORDERED: AMLO5TAB2 PO (11:31)
[2016-07-08] MEDS ORDERED: AMOX-366 PO (11:31)
--- NOTE | 2016-07-08 11:32 | PCM.DIMED ---
Discharge Instructions Date of Service July 08, 2016 Dates of Hospitalization July 03, 2016 at 17:40 Discharge Diagnosis Discharge Diagnosis # Severe Sepsis, acute, klebsella bacteremia. Improved. # Acute kidney injury, improved. # Hypertension, stable. # COPD, chronic. No evidence of acute respiratory process - Bronchodilator when necessary # Type II diabetes mellitus . # History of thromboembolic disease, on anticoagulation.. Patient Instructions Patient Instructions Please have your ProTime checked this Thursday Follow-up Provider: Noman Avilez MD Follow-up with PCP in: 1 week Justin Holden MD July 08, 2016 11:32
[2016-07-08] MEDS ORDERED: Insulin LISPRO 300 Unit/3 mL Inj SUBQ SCH (12:00)
--- NOTE | 2016-07-08 13:49 | PCM.PHAPRO ---
Progress Warfarin dosing WARFARIN DOSING PER PHARMACY [facility] WF RWP RWP RTM DFF Date July 04-July 05-July 06-July 07-July 08-June INR 2.34 2.08 1.97 1.71 1.76 1.92 INR change -0.26 -0.11 -0.26 0.05 0.16 Warf Dose 2 2 3 3 3 A/P -Subtherapeutic INR but uptrending. -Will continue warfarin 3 mg tonight if inpatient. Jayme Avelar, PharmD Jayme Avelar July 08, 2016 13:49
[2016-07-08] MEDS: cefTRIAXone Inj 1,000 MG in Dextrose 5% Minibag Plus 50 ML IV SCH (14:36)
--- NOTE | 2016-07-08 15:13 | NUR ---
Social Work Note: Discharge Data& Assessment: Per pt is medically ready for discharge. Tiana Kinney is a 86 year old female admitted on 07/03/2016 for sepsis. Per pt is medically improved, transitioned from IV to P.O antibiotics and ready to discharge back to [facility]. MIGUELITO received order from to arrange home health PT per PT recommendations. MIGUELITO presented Home Health List to pt and pt daughter for preferences. Pt and pt daughter do not have a preference and agreed to refer to the rotating calender. Referral provided to [facility]. Copy of F2F placed in pt chart. MIGUELITO spoke with Vivienne Admitting Director at [facility] who confirmed thatpt is able to return home to [facility] this afternoon without an assessment. DC paperwork faxed to Vivienne from [facility]. Pt daughter at bedside but would like to pay privately for a wheelchair van for pt to transport back to [facility] safely. MIGUELITO arranged [employer] Wheelchair van cloth picker for 4:00p.m. Pt, pt daughter and RN all notified. Pt and pt daughter deny any other needs. No other discharge needs identified. All updated and agreeable to plan. Plan: Per pt is medically ready to discharge home to [facility] via private pay wheelchair van with [facility] to follow. Pt and pt daughter deny any other needs. No other discharge needs identified. All updated and agreeable to plan. JOHN Jha
--- NOTE | 2016-07-08 15:21 | NUR ---
HOME HEALTH LIST PROVIDED FOR PREFERENCES. MIGUELITO received order from MD to arrange home health PT per PT recommendations. SW presented Home Health List to pt and pt daughter for preferences. Pt and pt daughter do not have a preference and agreed to refer to the rotating calender. Referral provided to JOHN Rodriguez
--- NOTE | 2016-07-08 16:15 | NUR ---
Discharge Pt just discharged to [facility] via [facility] wheelchair cab, daughter Elsa accompanied Pt at time of discharge. Pt's IV access D/C'd and intact X2. Update called to [facility]'s director. All discharge information reviewed with Pt and daughter r/t Pt's memory issues. Pt given discharge educational materials on all new prescriptions and sepsis. Pt and daughter verbalized understanding of all discharge instructions. All belongings accompanied Pt at time of discharge.
--- NOTE | 2016-07-08 16:52 | DRSVH ---
[facility] [address] [place] [address] Echocardiogram Report Name: GLENN SIGALA Date: 07/08/2016 Height: 63 in Hospital Exam Location: [facility] Weight: 190 lb Gender: Female BSA: 1.9 m2 : 1930 Age: 86 yrs Reason For Study: Septimcemia Ordering Physician: HOSPITALIST [facility] Performed By: Atif Peres Referring Physician: JUJU CADENA Interpretation Summary The study quality was technically difficult. The ejection fraction is estimated to be 70-75%. The mitral valve leaflets are mildly calcified. There is moderate mitral annular calcification. There is trace mitral regurgitation. The aortic valve is moderately calcified. There is mild to moderate aortic stenosis. There is mild aortic regurgitation. There is mild tricuspid regurgitation. The right ventricular systolic pressure is estimated at 30 mmHg assuming a right atrial pressure of 3 mm Hg. Probably no significant interval change, consider KAILYN if endocarditis is suspected. Procedure: A two-dimensional transthoracic echocardiogram with color flow and Doppler was performed. The study quality was technically difficult. Comparison is made with the echocardiogram of 02/12/16. The patient was in normal sinus rhythm during the exam. Left Ventricle: The left ventricular cavity is small. There is normal left ventricular wall thickness. The ejection fraction is estimated to be 70-75%. Left ventricular wall motion is normal. Right Ventricle: The right ventricle grossly appears normal in size with probable normal systolic function. Atria: The left atrial size is normal. The right atrium grossly appears normal in size. There is no Doppler evidence for an atrial septal defect. Mitral Valve: The mitral valve leaflets are mildly calcified. There is moderate mitral annular calcification. There is trace mitral regurgitation. Aortic Valve: The aortic valve is not well visualized. The aortic valve is moderately calcified. The peak aortic velocity is 2.3 m/sec. The aortic valve mean gradient is 12 mmHg. The calculated aortic valve area is 1.2 cm2. There is mild to moderate aortic stenosis. There is mild aortic regurgitation. Tricuspid Valve: The tricuspid valve is not well visualized, but is grossly normal. There is mild tricuspid regurgitation. The right ventricular systolic pressure is estimated at 30 mmHg assuming a right atrial pressure of 3 mm Hg. Pulmonic Valve: The pulmonic valve is not well visualized. Great Vessels: The aortic root is normal size. The dimensions of the ascending aorta are normal. The pulmonary artery is not well visualized, but is probably normal size. The IVC is of normal diameter and collapses greater than 50% with a sniff. This suggests a low right atrial pressure of 3 mm Hg. Pericardium/ Pleura There is no pericardial effusion. There is no pleural effusion. MMode/2D Measurements & Calculations LVIDd: 3.6 cm LA A2 area LVOT diam: 1.9 cm LV meyers. diameter/BSA LVIDs: 2.3 cm AoV Opening (cm/m^2): 1.9 FS: 34.6 % EPSS: 0.45 cm LA A4 area asc Aorta Diam IVSd: 1.0 cm LVPWd: 1.0 cm LA length Ao Arch Diam (Prox (vol): 4.1 cm Trans): 1.9 cm LA vol: 31.2 ml LA vol index : 16.5 ml/m2 LV sys. diameter/BSA (cm/m^2): 1.2 Doppler Measurements & Calculations Ao V2 max: 233.8 cm/secMV E max marcello MV E/A: 0.83 TR max marcello Ao max P.9 mmHg : 97.1 cm/sec Med Peak E' Marcello : 261.7 cm/sec Ao mean P.9 mmHg MV A max marcello TR max PG LVOT Max Marcello : 117.1 cm/sec E/E' med: 26.3 : 27.4 mmHg : 94.7 cm/sec Lat Peak E' Marcello PA V2 max MVA(VTI): 1.7 cm2 : 64.6 cm/sec ROBIN(I,D): 1.2 cm E/E' lat: 18.1 PA mean PG sev ratio: 0.43 E/e' average : 1.1 mmHg MV V2 mean: 74.1 cm/secAo V2 mean LV V1 max PG PA V2 mean MV mean P.5 mmHg : 163.8 cm/sec : 52.2 cm/sec MV V2 VTI: 38.5 cm Ao V2 VTI: 56.7 cmLV V1 VTI PA pr(Accel) MV dec time: 0.31 sec : 24.2 cm : 43.2 mmHg ROBIN(V,D): 1.1 cm2 ROBIN indexed to BSA (cm^2/m^2): 0.61 Electronically signed by: Bashir Leary on Reading Physician:07/08/2016 04:51 PM
--- NOTE | 2016-07-09 07:35 | PCM.DC.MED ---
Discharge Summary Date of Service July 08, 2016 Dates of Hospitalization Date of Hospital Admission July 03, 2016 at 17:40 Date of Discharge: July 08, 2016 Providers: Admitting Physician: Nicholas Watson MD Primary Care Physician: Zoila Lazaro Attending Physician: Nicholas Watson MD Diagnosis at Time of Discharge Diagnosis at Time of Discharge # Severe Sepsis, acute, klebsella bacteremia. Improved. # Acute kidney injury, improved. # Hypertension, stable. # COPD, chronic. No evidence of acute respiratory process - Bronchodilator when necessary # Type II diabetes mellitus . # History of thromboembolic disease, on anticoagulation.. Consultations Surgery, Dr Tirado Procedures XRay, CTs & MRIs X-RAY CHEST ONE VIEW, PORTABLE IMPRESSION: Minimal unchanged costophrenic angle blunting, possibly related to scarring versus chronic effusions. Dictated by: Coretta Ji M.D. on 07/03/2016 at 16:25 CT BRAIN WITHOUT CONTRAST IMPRESSION: Severely motion degraded examination. Within this constraint, no gross acute intracranial process. Dictated by: Bulmaro Mayer M.D. on 07/03/2016 at 17:15 PROCEDURE: US ABDOMEN IMPRESSION: Cholelithiasis however no other sonographic criteria for acute cholecystitis. Please correlate clinically and with LFTs. Bilateral renal cysts. Atrophic left kidney. Dictated by: Bulmaro Mayer M.D. on 07/03/2016 at 17:05 PROCEDURE: CT ABDOMEN AND PELVIS WITHOUT CONTRAST IMPRESSION: Overall, no acute abnormality seen. Cholelithiasis Appendix not definitely visualized. Recommend clinical and laboratory correlation. Age-indeterminate T12 compression fracture. Incidental colonic diverticulosis. Dictated by: Bulmaro Mayer M.D. on 07/03/2016 at 17:11 . NM HIDA SCAN WITH CCK IMPRESSION: No evidence for an acute cholecystitis is seen. This HIDA scan is considered within normal limits. Dictated by: Ilan Lucia M.D. on 07/04/2016 at 16:38 ECG 12 Lead 07/03/16 15:22 sinus tachycardia 102 bpm, left axis deviation, LAD, old Q waves III, aVF, no acute ST-T wave changes. Cardiac Echo Impression Interpretation Summary The study quality was technically difficult. The ejection fraction is estimated to be 70-75%. The mitral valve leaflets are mildly calcified. There is moderate mitral annular calcification. There is trace mitral regurgitation. The aortic valve is moderately calcified. There is mild to moderate aortic stenosis. There is mild aortic regurgitation. There is mild tricuspid regurgitation. The right ventricular systolic pressure is estimated at 30 mmHg assuming a right atrial pressure of 3 mm Hg. Probably no significant interval change, consider KAILYN if endocarditis is suspected. Invasive Procedures None Brief History The patient has mild cognitive impairment but lives independently at [facility]. She reports that she was in her usual state of health yesterday. She went to bed with a headache. She awakened today and experienced multiple bouts of nausea and vomiting which she attributed to "stomach flu." She endorses chronic intermittent abdominal pain and seems to localizes to the right lower quadrant. She denies that this was any worse today. She does not recall fever sweats or shaking chills. She denies any continued headache, stiff neck, cough , dysuria. Emergency medical services were contacted by staff at [facility] and when they arrived they administered 25 mg Phenergan, following which she became obtunded. She is subsequently recovered relatively normal mental status. At emergency department she was noted to have high fever tachycardia and tachypnea , and admitted for treatment of sepsis complicated by medication induced encephalopathy. Hospital Course Tiana Kinney is a 86-year-old woman with history of COPD and peripheral vascular disease related to tobacco abuse presents with acute onset nausea vomiting and sepsis and gram-negative bacteremia. Hospital day # 3. # Severe Sepsis, acute, present on admission. Improving. SIRS criteria on admission heart rate 105, respiratory rate 35, temperature 39.6, leukocytosis 19.2. Associated with hypoxia 90% on room air, and acute kidney injury creatinine 1.77. Lactic acidosis elevated 3.5. No hypotension. Clinically improved within 12 hours. Lactate normalized. - Resolved, Aggressive fluid resuscitation completed - Continue Antibiotic therapy for gram-negative tomas bacteremia, await sensitivities. The patient had positive blood cultures indicating Klebsiella pneumonia septicemia. She is in negative abdomen pelvis CT abnormal chest x-ray. An echo was obtained to rule out evidence of vegetation was unremarkable. Second set of cultures negative. Infectious disease was curb sided. Recommendation for total course of 14 days of antibiotics with a conversion to oral, discharge. # Abdominal inflammatory process, acute, present on admission. Improving. Presenting symptoms are nausea and vomiting. Associated laboratory findings include elevated transaminases. She gives history of intermittent right lower quadrant pain, although not significantly increased at present. There is no diarrhea. Abdominal imaging reveals choleithiasis but no gallbladder inflammation or other hepatic abnormalities. CT imaging limited to noncontrast study but reveals no obvious intra-abdominal abscess. Chest x-ray and urinalysis are unremarkable. Diagnosis is gram-negative bacteremia due to presumed colonic diverticular disease. Blood cultures were positive from 525 but still no ID and sensitivity. - Broad-spectrum antibiotic coverage Zosyn for gram-negative rods, anaerobes and enterococcal infection. - Revise antibiotics when sensitivities available - Plan to discharge when microbiology data is available for outpatient antibiotic therapy There was no evidence of acute intra-abdominal infection by CT scan and clinically she had no recurrent abdominal pain. Suspect that this may relate to a pyelonephritis. # Acute kidney injury, present on admission. Serum creatinine 1.77 on admission. Now declined to 1.49. Improving. - Follow BMP with hydration - Plan to revise antibiotics as soon as possible This resolved with treatment of infection and fluid resuscitation. # Hypertension, chronic. Diuretic antihypertensives have been held due to sepsis. Patient is now hypertensive. - Initiate amlodipine 5 mg daily - Discontinue IV fluids, this is stable. # COPD, chronic. No evidence of acute respiratory process - Bronchodilator when necessary # Type II diabetes mellitus with Hyperglycemia, acute. This is stable, good control. Glucoses have been at inpatient target. No prior diabetic therapy. She seems appropriate candidate for globin A1c target 7-8 percent. Recommend diet therapy and follow-up with PCP. - Monitor blood glucose - Insulin correctional scale while inpatient - Inpatient diabetes education if possible # History of thromboembolic disease, chronic. - Pharmacy to manage warfarin # Peripheral vascular disease, chronic. Exam Vital Signs (Last) Date Time Temp Pulse Resp B/P Pulse Ox O2 Delivery O2 Flow Rate FiO2 07/08/16 07:47 36.5 61 16 156/66 96 Room Air Exam Patient was seen and examined on the day of discharge Test 07/03/16 14:50 07/03/16 15:14 07/03/16 22:35 07/04/16 02:45 Magnesium Level 1.8mg/dL (1.6-2.6) Troponin T 0.010ug/L (0.0-0.011) Lipase 44U/L (13-60) Urine Color Straw (YELLOW) Urine Appearance Hazy (CLEAR,HAZY) Urine pH 6.0 (5.0-8.0) Urine Specific [place] 1.010 (1.003-1.035) Urine Protein Negativemg/dL (NEG,TRACE) Urine Glucose (UA) Negativemg/dL (NEGATIVE) Urine Ketones Negativemg/dL (NEGATIVE) Urine Occult Blood Negative (NEGATIVE) Urine Nitrite Negative (NEGATIVE) Urine Bilirubin Negative (NEGATIVE) Urine Urobilinogen Normalmg/dL (NORMAL) Urine Leukocyte Esterase Negative (NEGATIVE) Urine RBC 0-2/hpf (0-2) Urine WBC 0-5/hpf (0-5) Urine Epithelial Cells Occasional/hpf (NONE-MOD) Urine Crystals None seen (NONE SEEN) Urine Bacteria Moderate/hpf (NONE-FEW) Urine Hyaline Casts None/lpf (NONE) Urine Granular Casts None seen (NONE SEEN) Urine Waxy Casts None seen (NONE SEEN) Urine Red Blood Cell Casts None seen (NONE SEEN) Urine White Blood Cell Casts None seen (NONE SEEN) Urine Mucus None seen (None Seen) Urine Trichomonas None seen (NONE SEEN) Urine Yeast None (NONE SEEN) Urinalysis Comment None Urine Culture Reflexed Indicated Lactic Acid Level 1.7mmol/L (0.4-2.0) Neutrophils (%) (Auto) 85.5% (40-74) Lymphocytes (%) (Auto) 6.3% (14-46) Monocytes (%) (Auto) 7.2% (4-12) Eosinophils (%) (Auto) 0.6% (0-5) Basophils (%) (Auto) 0.2% (0-3) Test 07/05/16 08:30 07/08/16 02:45 White Blood Count 9.0th/mm3 (3.8-10.1) Red Blood Count 4.16mil/mm3 (3.90-5.20) Hemoglobin 10.3g/dL (12.0-15.6) Hematocrit 33.4% (35.0-46.0) Mean Corpuscular Volume 80.3fL (81-100) Mean Corpuscular Hemoglobin 24.8pg (27.0-35.0) Mean Corpuscular Hemoglobin Concent 30.8% (32.0-37.0) Red Cell Distribution Width 17.9% (12.3-15.4) Platelet Count 204bil/L (150-400) Sodium Level 138mEq/L (134-144) Potassium Level 4.5mEq/L (3.5-5.2) Chloride Level 104mEq/L (97-108) Carbon Dioxide Level 19mmol/L (18-29) Blood Urea Nitrogen 23mg/dL (8-27) Creatinine 1.49mg/dL (0.57-1.00) Estimat Glomerular Filtration Rate 48mL/min (>59) Glucose Level 100mg/dL (60-99) Hemoglobin A1c 7.2% (4.8-5.6) Calcium Level 8.4mg/dL (8.5-10.1) Total Bilirubin 0.8mg/dL (0.0-1.2) Aspartate Amino Transf (AST/SGOT) 91U/L (0-50) Alanine Aminotransferase (ALT/SGPT) 157U/L (0-32) Alkaline Phosphatase 156U/L (25-165) Total Protein 6.3g/dL (6.4-8.4) Albumin 3.0g/dL (3.4-5.0) Prothrombin Time 20.8sec (8.1-12.5) Prothromb Time International Ratio 1.92ratio Discharge Medications Discharge Medications Amlodipine (Amlodipine) 5 Mg Tablet 5 MG PO DAILY Prescribed by: JUSTIN CADENA MD Amoxicillin/Clav K 875-125 mg (Augmentin 875-125 mg) 1 Each Tablet 1 TABLET PO BID Prescribed by: JUSTIN CADENA MD Budesonide/Formoterol 160-4.5 mcg Inh (Symbicort 160-4.5 mcg Inh) 120 Puff Inhaler 1 PUFF INHALATION BID (Reported) Furosemide (Furosemide) 20 Mg Tab 20 MG PO QAM (Reported) Omeprazole (Omeprazole) 20 Mg Capsule.dr 20 MG PO QAM (Reported) Spironolactone (Spironolactone) 25 Mg Tablet 25 MG PO QAM (Reported) Tiotropium Kimberly (Spiriva) 18 Mcg Cap.w.dev 18 MCG IH QAM (Reported) Warfarin Sodium (Warfarin Sodium) 2 Mg Tablet 2 MG PO DAILY EXCEPT MON/MYRTLE ( Reported) 3 MG THU/TH, 2 MG ALL OTHER DAYS Warfarin Sodium (Warfarin Sodium) 2 Mg Tablet 3 MG PO THU/ (Reported) 3 MG MON/THURS, 2 MG ALL OTHER DAYS As needed Guaifenesin (Liquituss GG) 200 Mg/5 Ml Liquid 100-200 MG PO q6hr PRN PRN For Cough (Reported) Followup Plan Disposition: Home, with home health Patient Instructions Please have your ProTime checked this Thursday Follow-up Provider: Noman Avilez MD Follow-up with PCP in: 1 week Time spent 60 minutes Justin Cadena MD July 09, 2016 07:35
== END 2016-07-08 16:15 | disposition home health service (06) | DRG 872 ==
LOC: EDBD 14:34 → SED 14:34 → EDUNIT# 14:34 → PCC 17:40
PROVIDERS: ADMIT Internal Medicine; ATTEND Internal Medicine
DX: A41.59 Other Gram-negative sepsis (principal); N17.9 Acute kidney failure, unspecified; N12 Tubulo-interstitial nephritis, not specified as acute or chronic; R65.20 Severe sepsis without septic shock; I10 Essential (primary) hypertension; J44.9 Chronic obstructive pulmonary disease, unspecified; E11.65 Type 2 diabetes mellitus with hyperglycemia; I73.9 Peripheral vascular disease, unspecified; B96.1 Klebsiella pneumoniae [K. pneumoniae] as the cause of diseases classified elsewhere; Z87.891 Personal history of nicotine dependence; Z66 Do not resuscitate; Z79.01 Long term (current) use of anticoagulants; Z86.718 Personal history of other venous thrombosis and embolism; K80.20 Calculus of gallbladder without cholecystitis without obstruction